=== PATIENT | male | born 1940 | race Caucasian/White ===

== ENCOUNTER → 2018-03-07 13:13 | Outpatient (CLI) | payer MEDICARE, SELFPAY ==
[2018-03-07 15:07] LABS: Alanine Aminotransferase 51 IU/L (21-72); Albumin 4.5 g/dL (3.5-5.0); Alkaline Phosphatase 102 U/L (38-126); Aspartate Aminotransferase 33 IU/L (17-59); BUN Creatinine Ratio 21.4 (6-22); Bilirubin Total 1.2 mg/dL (0.2-1.3); Blood Urea Nitrogen 15 mg/dL (9-20); Calcium 9.7 mg/dL (8.4-10.2); Carbon Dioxide 27 mmol/L (22-32); Chloride 102 mmol/L (98-107); Cholesterol 136 mg/dL (140-199); Estimated Glomerular Filt Rate > 60.0 mL/min (>60); Globulin 2.3 g/dL (1.7-4.1); Glucose 115 mg/dL (80-110); HDL Cholesterol 64 mg/dL (40-60); HEMOLYSIS < 15 (0-50); LDL Cholesterol Calculated 48 mg/dL (<100); Potassium 3.9 mmol/L (3.4-5.1); Sodium 140 mmol/L (137-145); Total Protein 6.8 g/dL (6.3-8.2); Triglycerides 120 mg/dL (35-150)
== END ==
PROVIDERS: PCP Physician Assistant; Visit Provider Physician Assistant
DX: E78.5 Hyperlipidemia, unspecified (principal)
CPT/HCPCS: 36415; 80053; 80061

== ENCOUNTER → 2019-03-03 12:02 | Outpatient (CLI) | payer MEDICARE, SELFPAY ==
--- NOTE | 2019-03-03 | DI.RAD.S_ITS ---
PROCEDURE: XR THORACIC SPINE 3V INDICATIONS: LOW BACK PAIN TECHNIQUE: 3 views of the thoracic spine were acquired. COMPARISON: None. FINDINGS: Bones: No fractures or dislocations. No suspicious bony lesions. There is mild degenerative disc disease at T4-T5, T6-T7, T7-T8, T8-T9, T9-T10, T10-T11 and T11-T 12. Twelve pairs of ribs are noted, and appear intact where visualized. Soft tissues: No paravertebral stripe thickening. IMPRESSION: Mild degenerative disc disease. No fractures. Dictated by: Emiliana Schrader M.D. on 03/03/2019 at 17:16 Approved by: Emiliana Schrader M.D. on 03/03/2019 at 17:19
--- NOTE | 2019-03-03 | DI.RAD.S_ITS ---
PROCEDURE: XR LUMBAR SPINE 2-3V INDICATIONS: LOW BACK PAIN TECHNIQUE: 5 views of the lumbar spine were acquired. COMPARISON: None. FINDINGS: Bones: 5 pdy-tom-jukxcbx vertebrae are present. There is normal bony alignment. No vertebral body compression fractures. No suspicious bony lesions. There is degenerative disc disease, moderate at L4-L5 and L5-S1, mild at L2-L3 and L3-L4. There is mild facet arthropathy at L2-L3, L3 L4, L4-L5 and L5-S1. 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 Soft tissues: Overlying bowel gas pattern is normal. No suspicious soft tissue calcifications. IMPRESSION: Degenerative disc and facet disease lumbar spine. If there are radiculopathy symptoms, MRI is suggested for further evaluation. Dictated by: Emiliana Schrader M.D. on 03/03/2019 at 17:19 Approved by: Emiliana Schrader M.D. on 03/03/2019 at 17:21
== END ==
PROVIDERS: PCP Physician Assistant; Visit Provider Physician Assistant
DX: M54.5 Low back pain (principal); M51.34 Other intervertebral disc degeneration, thoracic region; M51.36 Other intervertebral disc degeneration, lumbar region; M51.37 Other intervertebral disc degeneration, lumbosacral region; M47.816 Spondylosis without myelopathy or radiculopathy, lumbar region; M47.817 Spondylosis without myelopathy or radiculopathy, lumbosacral region
CPT/HCPCS: 72072; 72100

== ENCOUNTER → 2019-03-18 15:50 | Outpatient (CLI) | payer MEDICARE, SELFPAY ==
--- NOTE | 2019-03-18 | DI.MRI.S_ITS ---
PROCEDURE: MR LUMBAR SPINE WO CON INDICATIONS: Right sided low back pain TECHNIQUE: Noncontrast sagittal T1 spin echo and T2 fast echo, sagittal STIR, axial T1 and T2 fast spin echo through the lumbar spine. In cases with scoliosis, additional coronal T2 fast spin echo may be performed. COMPARISON: None. FINDINGS: Image quality: Excellent. Alignment and Curvature: Mild levoconvex scoliotic curvature is noted. No focal AP alignment abnormality is seen. Bone Marrow: Marrow is of normal overall signal. Scattered foci are seen, which are hyperintense on T1-weighted and T2-weighted imaging, which are most consistent with benign vertebral body hemangiomas. No acute vertebral body compression fractures. Spinal Cord: Conus medullaris terminates at the L1 level. Visualized cord demonstrates normal signal and size. Paraspinous Soft Tissues: No paravertebral masses. T12-L1: Normal appearance. L1-L2: Mild loss of disc height is seen. Loss of disc signal is seen. Mild to moderate disc bulge is seen. There is a right foraminal disc extrusion seen, which is best demonstrated on series 3 image 6. There is moderate left-sided and moderate to severe right-sided neural foraminal narrowing seen. There is a degree of compression seen upon the exiting right L1 nerve root. Oxmv-mi-joouqzol central canal narrowing is seen. L2-L3: The disc height is well-preserved. Loss of disc signal is seen at this level. Mild to moderate disc bulge is seen. Sknq-eu-ninbouza facet hypertrophy is seen. There is at least moderate left-sided and moderate right-sided neural foraminal narrowing seen. There is a mild degree of compression seen upon the exiting left L2 nerve root. Grhu-kj-qnjzosgo central canal narrowing is seen. L3-L4: Moderate to severe loss of disc height and disc signal are seen. Irregularity is seen. Reactive marrow endplate changes are seen, which are hyperintense on T1-weighted and T2-weighted imaging and most consistent with fatty metaplasia (Modic type II changes). Moderate disc bulge is seen, which is eccentric to the right. There is a right foraminal disc protrusion seen. There is moderate to severe right-sided neural foraminal narrowing seen, with a degree of compression seen upon the exiting right L3 nerve root. Mild left-sided neural foraminal narrowing is seen. Mild central canal narrowing is seen. L4-L5: Moderate loss of disc height is seen. Loss of disc signal is seen. Moderate disc bulge is seen, which is eccentric to the left. Dvgq-vz-xfjrqgmm facet hypertrophy is seen. There is moderate to severe bilateral neural foraminal narrowing seen. There is a degree of compression seen upon the exiting nerve roots. Minimal central canal narrowing is seen. L5-S1: Moderate to severe loss of disc height and disc signal are seen. Reactive marrow endplate changes are seen, which are hyperintense on T1-weighted and T2-weighted imaging and most consistent with fatty metaplasia (Modic type II changes). Moderate generalized disc bulge is seen. Mild facet joint hypertrophy is seen. There is moderate to severe right-sided neural foraminal narrowing seen, with a mild degree of exiting right L5 nerve root. There is mild left-sided neural foraminal narrowing. No central canal narrowing is seen. IMPRESSION: Multiple levels of lumbar spine degenerative change are seen, which are most prominent at the L4-L5 level. Note is made of a disc extrusion involving the right neural foramen at the L1-L2 level, with associated right L1 nerve root compression. Dictated by: Carter Davila M.D. on 03/18/2019 at 17:19 Approved by: Carter Davila M.D. on 03/18/2019 at 17:24
== END ==
PROVIDERS: PCP Physician Assistant; Visit Provider Physician Assistant
DX: M54.5 Low back pain (principal); M51.16 Intervertebral disc disorders with radiculopathy, lumbar region; M47.26 Other spondylosis with radiculopathy, lumbar region; M47.27 Other spondylosis with radiculopathy, lumbosacral region
CPT/HCPCS: 72148

== ENCOUNTER → 2019-12-29 12:38 | Outpatient (CLI) | payer MEDICARE, SELFPAY ==
--- NOTE | 2019-12-29 12:43 | DI.RAD.S_ITS ---
PROCEDURE: XR CERVICAL SPINE 4V OR 5V INDICATIONS: NECK PAIN TECHNIQUE: 5 views of the cervical spine were acquired. COMPARISON: [facility], , CERVICAL SPINE 2 OR 3 VIEWS, 12/03/2016, 17:14. FINDINGS: Bones: No fractures or dislocations to the T1 level. No suspicious bony lesions. Loss of lordosis which could be related to muscle spasm, rigidity or simply positional. Multilevel disc degeneration, severe at the C3-C4, C4-C5, C5-C6 and C6-C7 levels. Oblique views demonstrate mild multilevel mid and lower cervical spine bilateral neural foraminal narrowing. Soft tissues: Prevertebral soft tissues are normal in thickness. IMPRESSION: Loss of lordosis and multilevel spondylosis. Dictated by: Tulio JOSÉ Interpreted: Rosenda Juarez MD on 12/29/2019 at 16:48 Approved by: Rosenda Juarez M.D. on 12/29/2019 at 16:58
== END ==
PROVIDERS: PCP Physician Assistant; Referring Provider Physician Assistant; Visit Provider Physician Assistant
DX: M54.2 Cervicalgia (principal); M47.22 Other spondylosis with radiculopathy, cervical region
CPT/HCPCS: 72050

== ENCOUNTER → 2020-01-09 10:03 | Outpatient (CLI) | payer MEDICARE, SELFPAY ==
--- NOTE | 2020-01-09 | DI.MRI.S_ITS ---
PROCEDURE: MR CERVICAL SPINE WO CON INDICATIONS: Other cervical disc degeneration TECHNIQUE: Noncontrast sagittal T1 spin echo and T2 fast spin echo, sagittal STIR, foraminal oblique sagittal T2 fast spin echo, and axial gradient echo or T2 fast spin echo through the cervical spine. COMPARISON: None. FINDINGS: Image quality: Excellent. Alignment and Curvature: Normal configuration of the craniocervical junction. Normal cervical spine vertebral body height and alignment. Bone Marrow: Marrow demonstrates normal overall signal. Spinal Cord: Visualized spinal cord has normal size and signal. No cerebellar tonsillar herniation. Paraspinous Soft Tissues: No paravertebral masses. Prevertebral soft tissues are normal in thickness. C2-C3: Facet and uncovertebral hypertrophy contribute to mild right and moderate left neural foraminal stenosis. No spinal canal stenosis. C3-C4: Facet and uncovertebral hypertrophy contribute to moderate bilateral neural foraminal narrowing. Posterior disc-osteophyte complex flattens the ventral thecal sac without mass effect upon the cord. C4-C5: Posterior disc-osteophyte complex flattens and indents the ventral thecal sac, mildly flattening the left paracentral cord also. Facet and uncovertebral hypertrophy contribute to moderate bilateral neural foraminal narrowing. C5-C6: Posterior disc-osteophyte complex flattens and indents the ventral thecal sac without mass effect upon the cord. Facet and uncovertebral hypertrophy contribute to moderate bilateral neural foraminal stenosis. C6-C7: Posterior disc-osteophyte complex flattens the ventral thecal sac. No mass effect upon the cord. Facet and uncovertebral hypertrophy contribute to mild bilateral neural foraminal narrowing. C7-T1: No spinal canal or neural foraminal stenosis. IMPRESSION: Multifactorial degenerative changes with mild spinal canal stenosis at C4-C5 and multilevel moderate neural foraminal stenosis. Dictated by: Gaston King M.D. on 01/11/2020 at 8:30 Approved by: Gaston King M.D. on 01/11/2020 at 8:36
== END ==
PROVIDERS: PCP Physician Assistant; Referring Provider Physician Assistant; Visit Provider Physician Assistant
DX: M50.122 Cervical disc disorder at C5-C6 level with radiculopathy (principal); M50.30 Other cervical disc degeneration, unspecified cervical region
CPT/HCPCS: 72141

== ENCOUNTER 2020-06-16 14:30 | Outpatient (RCR) | payer OTHER, SELFPAY ==
--- NOTE | 2020-05-17 11:07 | PT.OIE ---
Current Diagnoses Spinal stenosis, cervical region (05/17/20) Past Medical History (Last Updated 08/29/17 @ 12:30 by Adalberto Robin MD) TIA (transient ischemic attack) Visit Care Team Role Provider Type Rehana Quiros PA-C Family Provider Non-Staff Primary Care Provider Specialty: Internal Medicine Address: [address] [place] [address], [id number] Email: [email or web address] Ambrose MD Attending Provider Non-Staff Referring Provider Specialty: Neurosurgery Address: [address] [place] [address], [phone] Email: Physical Therapy Initial Evaluation PT-OP-A Visit Information Start: 05/11/20 08:04 Freq: Status: Active Protocol: Document 05/17/20 09:44 MB (Rec: 05/17/20 10:08 MB [id number]) Out-Patient Physical Therapy Visit Information Visit Information Visit Type Initial Evaluation Visit Note [employer] Medicare Visit Start Time 09:44 Visit Stop Time 10:29 Total Visit Minutes 45 Visit Number 1 Evaluation Information Evaluation Date 05/17/20 Precautions Precautions History of TIA x2 and pt on blood thinners. Order states try traction for C3 radiculopathy, will hold off to see if other interventions work first PT-OP-B Current Condition Start: 05/11/20 08:04 Freq: Status: Active Protocol: Document 05/17/20 09:44 MB (Rec: 05/17/20 10:08 MB [id number]) Current Condition History of Current Condition Onset Date 6-8 months ago Current Complaints Neck pain and tingling with reading, doing suduko and gardening History of Current Condition Pt denies an injury. He states that 6-8 months ago, he noted discomfort in his neck and tingling in his left neck area . He has most trouble with standing or sitting and looking down. Pt denies tingling and weakness in his arms. He is right handed. Pt likes to garden and read. He feels better if he keeps his head back. Pt reports if he is in the right position with sleeping, he is okay. He sleeps on his left or back with a couple of pillows under his head if on his back. Pt reports pain around upper neck rated 4/10 when it is bad . He gets into [place] and then gets pain. He states that the pain occ goes up into his jaw . PMH: TIA x2 2018 and 2019, bruises easily, pt takes a blood thinner and cholesterol medications, pt denies further cardiac history. Prior Treatments and Tests PT in the past for lower back issues and s/p laminectomies Cervical MRI 01/09/20: multifactorial degenerative changes and mild canal stenosis at C4-5 and multilevel moderate neural foraminal stenosis Treatment Goals Patient/Caregiver Goals To eliminate the pain and discomfort with activities PT-OP-C Subjective Start: 05/11/20 08:04 Freq: Status: Active Protocol: Document 05/17/20 09:44 MB (Rec: 05/17/20 10:08 MB [id number]) Patient Questionnaires Neck Disability Index NDI Score 13/50 Other Questionnaire Name and Score Pt has no arm symptoms and so will not use QuickDASH score PT-OP-J Posture/Palpation/Skin Start: 05/11/20 08:04 Freq: Status: Active Protocol: Document 05/17/20 09:44 MB (Rec: 05/17/20 10:49 MB [id number]) Posture Evaluation Comments Posture Comments Standing assessment and pt is wearing his shoes: decreased cervical lordosis, Dowager's hump, some lateral curvature at Dowager's hump area, decreased thoracic kyphosis and lumbar lordosis, anterior tilt pelvis, right shoulder and right iliac crest are mildly higher than the left, hypertrophied muscles left thoracolumbar spine, increased Kimberly angle, greater on the right. PT-OP-K Range of Motion Start: 05/11/20 08:04 Freq: Status: Active Protocol: Document 05/17/20 09:44 MB (Rec: 05/17/20 10:49 MB [id number]) Cervical Spine Range of Motion Cervical Spine Active Testing Position Standing Flexion 45 Extension 35 Rotation Left 45 Rotation Right 50 Lateral Flexion Left 11 Lateral Flexion Right 15 Shoulder Goniometric Range of Motion Shoulder Bilateral Shoulder ROM WFL Yes Testing Position Standing Comments Flexion and abduction normal in standing PT-OP-M Strength Start: 05/11/20 08:04 Freq: Status: Active Protocol: Document 05/17/20 09:44 MB (Rec: 05/17/20 10:49 MB [id number]) Shoulder Strength Shoulder Manual Muscle Testing Left Flexion 5 Normal Abduction (C5) 5 Normal External Rotation 4 Good Internal Rotation 5 Normal Right Flexion 5 Normal Abduction (C5) 5 Normal External Rotation 4 Good Internal Rotation 5 Normal Elbow/Forearm Strength Elbow and Forearm Manual Muscle Testing Left Flexion (C6) 5 Normal Pronation 5 Normal Supination 5 Normal Right Flexion (C6) 5 Normal Pronation 5 Normal Supination 5 Normal PT-OP-Q Treatments Start: 05/11/20 08:04 Freq: Status: Active Protocol: Document 05/17/20 09:44 MB (Rec: 05/17/20 11:07 MB [id number]) Self-Care/Home Management Treatment Education Other Education Got out spinal model and print off of cervical MRI report to review changes per report using the model for pt education as he states that he did not understand what was the problem when talking with provider over Telemedicine. Ed pt in proper sleeping position using towel roll and pillows on his side or back for neck support. Ed in log roll technique to protect neck and use of pillow between his arms and legs when in side lying PT-OP-T Assessment and Plan Start: 05/11/20 08:04 Freq: Status: Active Protocol: Document 05/17/20 09:44 MB (Rec: 05/17/20 11:05 MB [id number]) Physical Therapy Assessment Rehab Potential Rehabilitation Potential Good Evaluation Complexity Number of Personal Factors/Comorbidities 0 Number of Body Systems Impaired 1-2 Clinical Presentation at Evaluation Evolving Impairments Impairments Pain,Posture,ROM,Soft Tissue Mobility,Strength Goals 4 Making Line Worker Goal (LTG) Pt will be able to perform [employer] game for 10 minutes without pain by 07/17/20. LTG Duration 8 weeks 3 Making Line Worker Goal (LTG) Pt will perform progressive HEP with I including postural, breathing, strengthening, relaxation, and balance exercises to improve qualtiy of life and performance of IADLs by 07/17/20. LTG Duration 8 weeks 2 Chcf Goal (LTG) Pt will present with improved cervical AROM to at least 45 deg extension, 50 deg flexion and B cervical rotation 55 deg to improve ability to perform tasks of reading and gardening by 07/17/20. LTG Duration 8 weeks 1 Making Line Worker Goal (LTG) Pt will report an overall 75% improvement in neck pain and symptoms to improve overall quality of life by 07/17/20. LTG Duration 8 weeks Assessment Summary Assessment Pt is a pleasant 79 y/o male presenting with neck pain, postural and spinal changes, decreased cervical ROM and mild UE weakness in setting of degenerative changes in cervical spine. He reports a history of lumbar pain and laminectomies as well. Pt reports that prolonged postures of doing suduko, reading and gardening increase his neck pain. His goal for PT is to decrease pain. He will benefit from PT for manual intervention, postural, flexibility and strengthening and ergonomic and body mechanics training. The PT order also states cervical traction and will initiate this as needed. Barriers include spinal changes and tendency to have prolonged postures and not take breaks. Physical Therapy Plan Frequency and Duration Frequency of Treatment 2x/Week Duration of Treatment 8 weeks Plan of Care Start Date 05/17/20 Plan of Care End Date 07/18/20 Therapeutic Interventions Therapeutic Interventions Balance Training,Canalithic Repositioning,Home Exercise Program,Joint Mobilizations, Manual Therapy,Neuromuscular Re-education,Patient/Caregiver Education,Self-Care/Home Management,Sensory Integration ,Soft Tissue Mobilization, Taping,Therapeutic Activities, Therapeutic Exercises Modalities Cold Pack/Ice Massage,Electric Stimulation,Hot Packs, Traction- Mechanical, Ultrasound Next Visit Focus/Plan Next Note Type Treatment Note Next Visit Plan Initiate thoracic flexibility and racquet ball massage ther- ex
--- NOTE | 2020-05-17 11:08 | PT.OPPOC ---
Physical, Occupational & Speech Therapy At [facility] Current Diagnoses Spinal stenosis, cervical region (05/17/20) Visit Care Team Role Provider Type Rehana Quiros PA-C Family Provider Non-Staff Primary Care Provider Specialty: Internal Medicine Address: [address] [place] [address], [id number] Email: [email or web address] Jenaro Ambrose MD Attending Provider Non-Staff Referring Provider Specialty: Neurosurgery Address: [address] [place] [address], [phone] Email: Plan Of Care PT-OP-T Assessment and Plan Start: 05/11/20 08:04 Freq: Status: Active Protocol: Document 05/17/20 09:44 MB (Rec: 05/17/20 11:05 MB [id number]) Physical Therapy Assessment Rehab Potential Rehabilitation Potential Good Evaluation Complexity Number of Personal Factors/Comorbidities 0 Number of Body Systems Impaired 1-2 Clinical Presentation at Evaluation Evolving Impairments Impairments Pain,Posture,ROM,Soft Tissue Mobility,Strength Goals 4 Chcf Goal (LTG) Pt will be able to perform [place] game for 10 minutes without pain by 07/17/20. LTG Duration 8 weeks 3 Duct Maker Goal (LTG) Pt will perform progressive HEP with I including postural, breathing, strengthening, relaxation, and balance exercises to improve qualtiy of life and performance of IADLs by 07/17/20. LTG Duration 8 weeks 2 Duct Maker Goal (LTG) Pt will present with improved cervical AROM to at least 45 deg extension, 50 deg flexion and B cervical rotation 55 deg to improve ability to perform tasks of reading and gardening by 07/17/20. LTG Duration 8 weeks 1 Duct Maker Goal (LTG) Pt will report an overall 75% improvement in neck pain and symptoms to improve overall quality of life by 07/17/20. LTG Duration 8 weeks Assessment Summary Assessment Pt is a pleasant 79 y/o male presenting with neck pain, postural and spinal changes, decreased cervical ROM and mild UE weakness in setting of degenerative changes in cervical spine. He reports a history of lumbar pain and laminectomies as well. Pt reports that prolonged postures of doing suduko, reading and gardening increase his neck pain. His goal for PT is to decrease pain. He will benefit from PT for manual intervention, postural, flexibility and strengthening and ergonomic and body mechanics training. The PT order also states cervical traction and will initiate this as needed. Barriers include spinal changes and tendency to have prolonged postures and not take breaks. Physical Therapy Plan Frequency and Duration Frequency of Treatment 2x/Week Duration of Treatment 8 weeks Plan of Care Start Date 05/17/20 Plan of Care End Date 07/18/20 Therapeutic Interventions Therapeutic Interventions Balance Training,Canalithic Repositioning,Home Exercise Program,Joint Mobilizations, Manual Therapy,Neuromuscular Re-education,Patient/Caregiver Education,Self-Care/Home Management,Sensory Integration ,Soft Tissue Mobilization, Taping,Therapeutic Activities, Therapeutic Exercises Modalities Cold Pack/Ice Massage,Electric Stimulation,Hot Packs, Traction- Mechanical, Ultrasound Next Visit Focus/Plan Next Note Type Treatment Note Next Visit Plan Initiate thoracic flexibility and racquet ball massage ther- ex Plan of Care Dates Plan of Care Start Date 05/17/20 Plan of Care End Date 07/18/20 Electronically Signed by: Almiat Gruber, PT 05/17/20 1101 Please Sign and Return: I have reviewed this Plan of Care and certify that the skilled therapy services above are required to meet the patient?s needs. Physician Signature Date Printed Name and Credentials Clinical Instructor Signature Printed Name and Credentials
--- NOTE | 2020-05-20 08:57 | PT.OTN ---
Current Diagnoses Spinal stenosis, cervical region (05/20/20) Physical Therapy Treatment Note PT-OP-A Visit Information Start: 05/11/20 08:04 Freq: Status: Active Protocol: Document 05/20/20 08:17 MB (Rec: 05/20/20 08:56 MB [id number]) Out-Patient Physical Therapy Visit Information Visit Information Visit Type Treatment Note Visit Note A[employer] Medicare Visit Start Time 08:17 Visit Stop Time 08:56 Total Visit Minutes 39 Visit Number 2 Precautions Precautions History of TIA x2 and pt on blood thinners. Order states try traction for C3 radiculopathy, will hold off to see if other interventions work first PT-OP-B Current Condition Start: 05/11/20 08:04 Freq: Status: Active Protocol: Document 05/17/20 09:44 MB (Rec: 05/17/20 10:08 MB [id number]) Current Condition History of Current Condition Onset Date 6-8 months ago Current Complaints Neck pain and tingling with reading, doing suduko and gardening History of Current Condition Pt denies an injury. He states that 6-8 months ago, he noted discomfort in his neck and tingling in his left neck area . He has most trouble with standing or sitting and looking down. Pt denies tingling and weakness in his arms. He is right handed. Pt likes to garden and read. He feels better if he keeps his head back. Pt reports if he is in the right position with sleeping, he is okay. He sleeps on his left or back with a couple of pillows under his head if on his back. Pt reports pain around upper neck rated 4/10 when it is bad . He gets into [place] and then gets pain. He states that the pain occ goes up into his jaw . PMH: TIA x2 2018 and 2019, bruises easily, pt takes a blood thinner and cholesterol medications, pt denies further cardiac history. Prior Treatments and Tests PT in the past for lower back issues and s/p laminectomies Cervical MRI 01/09/20: multifactorial degenerative changes and mild canal stenosis at C4-5 and multilevel moderate neural foraminal stenosis Treatment Goals Patient/Caregiver Goals To eliminate the pain and discomfort with activities PT-OP-C Subjective Start: 05/11/20 08:04 Freq: Status: Active Protocol: Document 05/20/20 08:17 MB (Rec: 05/20/20 08:57 MB [id number]) OP-PT Subjective Patient Comments Patient Comments Pt has no questions from the eval and he is drinking more non-caffeinated fluid. PT-OP-J Posture/Palpation/Skin Start: 05/11/20 08:04 Freq: Status: Active Protocol: Document 05/17/20 09:44 MB (Rec: 05/17/20 10:49 MB [id number]) Posture Evaluation Comments Posture Comments Standing assessment and pt is wearing his shoes: decreased cervical lordosis, Dowager's hump, some lateral curvature at Dowager's hump area, decreased thoracic kyphosis and lumbar lordosis, anterior tilt pelvis, right shoulder and right iliac crest are mildly higher than the left, hypertrophied muscles left thoracolumbar spine, increased Kimberly angle, greater on the right. PT-OP-K Range of Motion Start: 05/11/20 08:04 Freq: Status: Active Protocol: Document 05/17/20 09:44 MB (Rec: 05/17/20 10:49 MB [id number]) Cervical Spine Range of Motion Cervical Spine Active Testing Position Standing Flexion 45 Extension 35 Rotation Left 45 Rotation Right 50 Lateral Flexion Left 11 Lateral Flexion Right 15 Shoulder Goniometric Range of Motion Shoulder Bilateral Shoulder ROM WFL Yes Testing Position Standing Comments Flexion and abduction normal in standing PT-OP-M Strength Start: 05/11/20 08:04 Freq: Status: Active Protocol: Document 05/17/20 09:44 MB (Rec: 05/17/20 10:49 MB [id number]) Shoulder Strength Shoulder Manual Muscle Testing Left Flexion 5 Normal Abduction (C5) 5 Normal External Rotation 4 Good Internal Rotation 5 Normal Right Flexion 5 Normal Abduction (C5) 5 Normal External Rotation 4 Good Internal Rotation 5 Normal Elbow/Forearm Strength Elbow and Forearm Manual Muscle Testing Left Flexion (C6) 5 Normal Pronation 5 Normal Supination 5 Normal Right Flexion (C6) 5 Normal Pronation 5 Normal Supination 5 Normal PT-OP-Q Treatments Start: 05/11/20 08:04 Freq: Status: Active Protocol: Document 05/20/20 08:17 MB (Rec: 05/20/20 08:56 MB [id number]) Therapeutic Exercises Sitting Exercises Thoracic rotation Side bilateral Comments B, cues for form and end-range breathing, 4 reps and slowly Standing Exercises Racquet ball self-massage Standing Exercise Name MWM intrascapular muscles and upper traps, STM lumbar paraspinal, QL, glute Comments B and multiple practice, education Self-Care/Home Management Treatment Education Other Education Good sitting position at the desk top, Counterstrain and provided handout PT-OP-T Assessment and Plan Start: 05/11/20 08:04 Freq: Status: Active Protocol: Document 05/20/20 08:17 MB (Rec: 05/20/20 08:56 MB [id number]) Physical Therapy Assessment Rehab Potential Rehabilitation Potential Good Evaluation Complexity Number of Personal Factors/Comorbidities 0 Number of Body Systems Impaired 1-2 Clinical Presentation at Evaluation Evolving Impairments Impairments Pain,Posture,ROM,Soft Tissue Mobility,Strength Goals 4 Back Closer Goal (LTG) Pt will be able to perform Athletes[employer] Performance game for 10 minutes without pain by 07/17/20. LTG Duration 8 weeks 3 Back Closer Goal (LTG) Pt will perform progressive HEP with I including postural, breathing, strengthening, relaxation, and balance exercises to improve qualtiy of life and performance of IADLs by 07/17/20. LTG Duration 8 weeks 2 Fci Goal (LTG) Pt will present with improved cervical AROM to at least 45 deg extension, 50 deg flexion and B cervical rotation 55 deg to improve ability to perform tasks of reading and gardening by 07/17/20. LTG Duration 8 weeks 1 Fci Goal (LTG) Pt will report an overall 75% improvement in neck pain and symptoms to improve overall quality of life by 07/17/20. LTG Duration 8 weeks Assessment Summary Assessment Initiated flexibility with racquet ball today and pt does well with practice. He tends to hold his posture stiff in his thorax, shoulders and neck and so will con't to educate him about this and he may benefit from breathing exercises to assist with movement. Physical Therapy Plan Frequency and Duration Frequency of Treatment 2x/Week Duration of Treatment 8 weeks Plan of Care Start Date 05/17/20 Plan of Care End Date 07/18/20 Therapeutic Interventions Therapeutic Interventions Balance Training,Canalithic Repositioning,Home Exercise Program,Joint Mobilizations, Manual Therapy,Neuromuscular Re-education,Patient/Caregiver Education,Self-Care/Home Management,Sensory Integration ,Soft Tissue Mobilization, Taping,Therapeutic Activities, Therapeutic Exercises Modalities Cold Pack/Ice Massage,Electric Stimulation,Hot Packs, Traction- Mechanical, Ultrasound Next Visit Focus/Plan Next Note Type Treatment Note Next Visit Plan Progress exercises including breathing exercises, and consider manual work
--- NOTE | 2020-05-23 09:06 | PT.OTN ---
Current Diagnoses Spinal stenosis, cervical region (05/23/20) Physical Therapy Treatment Note PT-OP-A Visit Information Start: 05/11/20 08:04 Freq: Status: Active Protocol: Document 05/23/20 08:17 MB (Rec: 05/23/20 08:55 MB [id number]) Out-Patient Physical Therapy Visit Information Visit Information Visit Type Treatment Note Visit Note AARP Medicare Visit Start Time 08:17 Visit Stop Time 08:57 Total Visit Minutes 40 Visit Number 3 Precautions Precautions History of TIA x2 and pt on blood thinners. Order states try traction for C3 radiculopathy, will hold off to see if other interventions work first PT-OP-B Current Condition Start: 05/11/20 08:04 Freq: Status: Active Protocol: Document 05/17/20 09:44 MB (Rec: 05/17/20 10:08 MB [id number]) Current Condition History of Current Condition Onset Date 6-8 months ago Current Complaints Neck pain and tingling with reading, doing suduko and gardening History of Current Condition Pt denies an injury. He states that 6-8 months ago, he noted discomfort in his neck and tingling in his left neck area . He has most trouble with standing or sitting and looking down. Pt denies tingling and weakness in his arms. He is right handed. Pt likes to garden and read. He feels better if he keeps his head back. Pt reports if he is in the right position with sleeping, he is okay. He sleeps on his left or back with a couple of pillows under his head if on his back. Pt reports pain around upper neck rated 4/10 when it is bad . He gets into [place] and then gets pain. He states that the pain occ goes up into his jaw . PMH: TIA x2 2018 and 2019, bruises easily, pt takes a blood thinner and cholesterol medications, pt denies further cardiac history. Prior Treatments and Tests PT in the past for lower back issues and s/p laminectomies Cervical MRI 01/09/20: multifactorial degenerative changes and mild canal stenosis at C4-5 and multilevel moderate neural foraminal stenosis Treatment Goals Patient/Caregiver Goals To eliminate the pain and discomfort with activities PT-OP-C Subjective Start: 05/11/20 08:04 Freq: Status: Active Protocol: Document 05/23/20 08:17 MB (Rec: 05/23/20 08:55 MB [id number]) OP-PT Subjective Patient Comments Patient Comments Pt thinks that the racquet ball massage is helpful. The mornings are good and he gets sore in the afternoons. PT-OP-J Posture/Palpation/Skin Start: 05/11/20 08:04 Freq: Status: Active Protocol: Document 05/17/20 09:44 MB (Rec: 05/17/20 10:49 MB [id number]) Posture Evaluation Comments Posture Comments Standing assessment and pt is wearing his shoes: decreased cervical lordosis, Dowager's hump, some lateral curvature at Dowager's hump area, decreased thoracic kyphosis and lumbar lordosis, anterior tilt pelvis, right shoulder and right iliac crest are mildly higher than the left, hypertrophied muscles left thoracolumbar spine, increased Kimberly angle, greater on the right. PT-OP-K Range of Motion Start: 05/11/20 08:04 Freq: Status: Active Protocol: Document 05/17/20 09:44 MB (Rec: 05/17/20 10:49 MB [id number]) Cervical Spine Range of Motion Cervical Spine Active Testing Position Standing Flexion 45 Extension 35 Rotation Left 45 Rotation Right 50 Lateral Flexion Left 11 Lateral Flexion Right 15 Shoulder Goniometric Range of Motion Shoulder Bilateral Shoulder ROM WFL Yes Testing Position Standing Comments Flexion and abduction normal in standing PT-OP-M Strength Start: 05/11/20 08:04 Freq: Status: Active Protocol: Document 05/17/20 09:44 MB (Rec: 05/17/20 10:49 MB [id number]) Shoulder Strength Shoulder Manual Muscle Testing Left Flexion 5 Normal Abduction (C5) 5 Normal External Rotation 4 Good Internal Rotation 5 Normal Right Flexion 5 Normal Abduction (C5) 5 Normal External Rotation 4 Good Internal Rotation 5 Normal Elbow/Forearm Strength Elbow and Forearm Manual Muscle Testing Left Flexion (C6) 5 Normal Pronation 5 Normal Supination 5 Normal Right Flexion (C6) 5 Normal Pronation 5 Normal Supination 5 Normal PT-OP-Q Treatments Start: 05/11/20 08:04 Freq: Status: Active Protocol: Document 05/23/20 08:17 MB (Rec: 05/23/20 08:55 MB [id number]) Manual Therapy Treatment Other Other Manual Treatments Pt agrees to Counterstrain to assess and treat fascial tension. Pt presents with tension in the following fascial systems: right trigeminal and facial nerves, cranial bone scars, spinal meduallary LV and PT treats stacks in spinal medullary system and then standard lymphatic scan that is tight after treating medullary row. PT-OP-T Assessment and Plan Start: 05/11/20 08:04 Freq: Status: Active Protocol: Document 05/23/20 08:17 MB (Rec: 05/23/20 08:55 MB [id number]) Physical Therapy Assessment Rehab Potential Rehabilitation Potential Good Evaluation Complexity Number of Personal Factors/Comorbidities 0 Number of Body Systems Impaired 1-2 Clinical Presentation at Evaluation Evolving Impairments Impairments Pain,Posture,ROM,Soft Tissue Mobility,Strength Goals 4 Long-Term Goal (LTG) Pt will be able to perform Turbocoating game for 10 minutes without pain by 07/17/20. LTG Duration 8 weeks 3 Long-Term Goal (LTG) Pt will perform progressive HEP with I including postural, breathing, strengthening, relaxation, and balance exercises to improve qualtiy of life and performance of IADLs by 07/17/20. LTG Duration 8 weeks 2 Antenna Engineer Goal (LTG) Pt will present with improved cervical AROM to at least 45 deg extension, 50 deg flexion and B cervical rotation 55 deg to improve ability to perform tasks of reading and gardening by 07/17/20. LTG Duration 8 weeks 1 Antenna Engineer Goal (LTG) Pt will report an overall 75% improvement in neck pain and symptoms to improve overall quality of life by 07/17/20. LTG Duration 8 weeks Assessment Summary Assessment Initiated Counterstrain today and pt responds well initially . He presents with increased tension in LV system and that improves after treatment. Con' t to monitor. Physical Therapy Plan Frequency and Duration Frequency of Treatment 2x/Week Duration of Treatment 8 weeks Plan of Care Start Date 05/17/20 Plan of Care End Date 07/18/20 Therapeutic Interventions Therapeutic Interventions Balance Training,Canalithic Repositioning,Home Exercise Program,Joint Mobilizations, Manual Therapy,Neuromuscular Re-education,Patient/Caregiver Education,Self-Care/Home Management,Sensory Integration ,Soft Tissue Mobilization, Taping,Therapeutic Activities, Therapeutic Exercises Modalities Cold Pack/Ice Massage,Electric Stimulation,Hot Packs, Traction- Mechanical, Ultrasound Next Visit Focus/Plan Next Note Type Treatment Note Next Visit Plan Progress exercises including breathing exercises, and consider manual work
--- NOTE | 2020-05-25 09:05 | PT.OTN ---
Current Diagnoses Spinal stenosis, cervical region (05/25/20) Physical Therapy Treatment Note PT-OP-A Visit Information Start: 05/11/20 08:04 Freq: Status: Active Protocol: Document 05/25/20 08:18 MB (Rec: 05/25/20 08:59 MB [id number]) Out-Patient Physical Therapy Visit Information Visit Information Visit Type Treatment Note Visit Note AARP Medicare Visit Start Time 08:18 Visit Stop Time 09:00 Total Visit Minutes 42 Visit Number 4 Precautions Precautions History of TIA x2 and pt on blood thinners. Order states try traction for C3 radiculopathy, will hold off to see if other interventions work first PT-OP-B Current Condition Start: 05/11/20 08:04 Freq: Status: Active Protocol: Document 05/17/20 09:44 MB (Rec: 05/17/20 10:08 MB [id number]) Current Condition History of Current Condition Onset Date 6-8 months ago Current Complaints Neck pain and tingling with reading, doing suduko and gardening History of Current Condition Pt denies an injury. He states that 6-8 months ago, he noted discomfort in his neck and tingling in his left neck area . He has most trouble with standing or sitting and looking down. Pt denies tingling and weakness in his arms. He is right handed. Pt likes to garden and read. He feels better if he keeps his head back. Pt reports if he is in the right position with sleeping, he is okay. He sleeps on his left or back with a couple of pillows under his head if on his back. Pt reports pain around upper neck rated 4/10 when it is bad . He gets into [place] and then gets pain. He states that the pain occ goes up into his jaw . PMH: TIA x2 2018 and 2019, bruises easily, pt takes a blood thinner and cholesterol medications, pt denies further cardiac history. Prior Treatments and Tests PT in the past for lower back issues and s/p laminectomies Cervical MRI 01/09/20: multifactorial degenerative changes and mild canal stenosis at C4-5 and multilevel moderate neural foraminal stenosis Treatment Goals Patient/Caregiver Goals To eliminate the pain and discomfort with activities PT-OP-C Subjective Start: 05/11/20 08:04 Freq: Status: Active Protocol: Document 05/25/20 08:18 MB (Rec: 05/25/20 08:59 MB [id number]) OP-PT Subjective Patient Comments Patient Comments No problem with it. When PT asks pt how he felt after PT treatment PT-OP-J Posture/Palpation/Skin Start: 05/11/20 08:04 Freq: Status: Active Protocol: Document 05/17/20 09:44 MB (Rec: 05/17/20 10:49 MB [id number]) Posture Evaluation Comments Posture Comments Standing assessment and pt is wearing his shoes: decreased cervical lordosis, Dowager's hump, some lateral curvature at Dowager's hump area, decreased thoracic kyphosis and lumbar lordosis, anterior tilt pelvis, right shoulder and right iliac crest are mildly higher than the left, hypertrophied muscles left thoracolumbar spine, increased Kimberly angle, greater on the right. PT-OP-K Range of Motion Start: 05/11/20 08:04 Freq: Status: Active Protocol: Document 05/17/20 09:44 MB (Rec: 05/17/20 10:49 MB [id number]) Cervical Spine Range of Motion Cervical Spine Active Testing Position Standing Flexion 45 Extension 35 Rotation Left 45 Rotation Right 50 Lateral Flexion Left 11 Lateral Flexion Right 15 Shoulder Goniometric Range of Motion Shoulder Bilateral Shoulder ROM WFL Yes Testing Position Standing Comments Flexion and abduction normal in standing PT-OP-M Strength Start: 05/11/20 08:04 Freq: Status: Active Protocol: Document 05/17/20 09:44 MB (Rec: 05/17/20 10:49 MB [id number]) Shoulder Strength Shoulder Manual Muscle Testing Left Flexion 5 Normal Abduction (C5) 5 Normal External Rotation 4 Good Internal Rotation 5 Normal Right Flexion 5 Normal Abduction (C5) 5 Normal External Rotation 4 Good Internal Rotation 5 Normal Elbow/Forearm Strength Elbow and Forearm Manual Muscle Testing Left Flexion (C6) 5 Normal Pronation 5 Normal Supination 5 Normal Right Flexion (C6) 5 Normal Pronation 5 Normal Supination 5 Normal PT-OP-Q Treatments Start: 05/11/20 08:04 Freq: Status: Active Protocol: Document 05/25/20 08:18 MB (Rec: 05/25/20 08:59 MB [id number]) Therapeutic Exercises Supine Exercises Buteyko Breathing Supine Exercise Name Ed in theory, then reduced exercise 1 and then diaphragm exercise Comments Several reps, see assessment for notes Sitting Exercises Thoracic rotation Side bilateral Comments Cues to keep head with shoulders, perform slowly, breathing end-range Standing Exercises Racquet ball self-massage Standing Exercise Name Intrascapular muscles STM Comments B and pt performs well today Self-Care/Home Management Treatment Education Other Education Pt asks if he should get a cervical collar for when he walks his dog and feels the tingling/pain in his neck. PT ed pt on importance of noticing if his neck and shoulders are loose, benefits of holding a slightly longer leash with both hands, using right hand as support hand, when he walks his dog. Awareness of looking down vs scanning with eyes to help with cervical position. Also reviewed reading positions, benefits of breathing techniques to help with body awareness and taking breaks when performing forward tasks like gardening. PT-OP-T Assessment and Plan Start: 05/11/20 08:04 Freq: Status: Active Protocol: Document 05/25/20 08:18 MB (Rec: 05/25/20 08:59 MB [id number]) Physical Therapy Assessment Rehab Potential Rehabilitation Potential Good Evaluation Complexity Number of Personal Factors/Comorbidities 0 Number of Body Systems Impaired 1-2 Clinical Presentation at Evaluation Evolving Impairments Impairments Pain,Posture,ROM,Soft Tissue Mobility,Strength Goals 4 Cabin Supervisor Goal (LTG) Pt will be able to perform [employer] game for 10 minutes without pain by 07/17/20. LTG Duration 8 weeks 3 Cabin Supervisor Goal (LTG) Pt will perform progressive HEP with I including postural, breathing, strengthening, relaxation, and balance exercises to improve qualtiy of life and performance of IADLs by 07/17/20. LTG Duration 8 weeks 2 Cabin Supervisor Goal (LTG) Pt will present with improved cervical AROM to at least 45 deg extension, 50 deg flexion and B cervical rotation 55 deg to improve ability to perform tasks of reading and gardening by 07/17/20. LTG Duration 8 weeks 1 Cabin Supervisor Goal (LTG) Pt will report an overall 75% improvement in neck pain and symptoms to improve overall quality of life by 07/17/20. LTG Duration 8 weeks Assessment Summary Assessment Reviewed racquet ball and thoracic exercises today and then started Buteyko breathing . Pt's HR and O2 sats on RA in left index finger before ex: 61 BPM, 96%; 1st rep: 22 sec and HR increases 71 BPM and O2 sats 97%; 2nd rep: 25 sec, HR 65 BPM and O2 sats 95-97%; 3rd rep: 34 sec, 61 BPM, 97- 98%; 4th rep: 41 sec, 64 BPM, 97-98%. Diaphragm breathinst rep: 29 sec 64 BPM, 97% and pt to con't at home. Con't manual work and postural exercises in future treatments . Physical Therapy Plan Frequency and Duration Frequency of Treatment 2x/Week Duration of Treatment 8 weeks Plan of Care Start Date 05/17/20 Plan of Care End Date 07/18/20 Therapeutic Interventions Therapeutic Interventions Balance Training,Canalithic Repositioning,Home Exercise Program,Joint Mobilizations, Manual Therapy,Neuromuscular Re-education,Patient/Caregiver Education,Self-Care/Home Management,Sensory Integration ,Soft Tissue Mobilization, Taping,Therapeutic Activities, Therapeutic Exercises Modalities Cold Pack/Ice Massage,Electric Stimulation,Hot Packs, Traction- Mechanical, Ultrasound Next Visit Focus/Plan Next Note Type Treatment Note Next Visit Plan Progress postural exercises and manual work
--- NOTE | 2020-06-01 10:31 | PT.OTN ---
Current Diagnoses Spinal stenosis, cervical region (06/01/20) Physical Therapy Treatment Note PT-OP-A Visit Information Start: 05/11/20 08:04 Freq: Status: Active Protocol: Document 06/01/20 09:50 MB (Rec: 06/01/20 10:19 MB [id number]) Out-Patient Physical Therapy Visit Information Visit Information Visit Type Treatment Note Visit Note AARP Medicare Visit Start Time 09:50 Visit Stop Time 10:30 Total Visit Minutes 40 Visit Number 5 Precautions Precautions History of TIA x2 and pt on blood thinners. Order states try traction for C3 radiculopathy, will hold off to see if other interventions work first PT-OP-B Current Condition Start: 05/11/20 08:04 Freq: Status: Active Protocol: Document 05/17/20 09:44 MB (Rec: 05/17/20 10:08 MB [id number]) Current Condition History of Current Condition Onset Date 6-8 months ago Current Complaints Neck pain and tingling with reading, doing suduko and gardening History of Current Condition Pt denies an injury. He states that 6-8 months ago, he noted discomfort in his neck and tingling in his left neck area . He has most trouble with standing or sitting and looking down. Pt denies tingling and weakness in his arms. He is right handed. Pt likes to garden and read. He feels better if he keeps his head back. Pt reports if he is in the right position with sleeping, he is okay. He sleeps on his left or back with a couple of pillows under his head if on his back. Pt reports pain around upper neck rated 4/10 when it is bad . He gets into Sud[place]o and then gets pain. He states that the pain occ goes up into his jaw . PMH: TIA x2 2018 and 2019, bruises easily, pt takes a blood thinner and cholesterol medications, pt denies further cardiac history. Prior Treatments and Tests PT in the past for lower back issues and s/p laminectomies Cervical MRI 01/09/20: multifactorial degenerative changes and mild canal stenosis at C4-5 and multilevel moderate neural foraminal stenosis Treatment Goals Patient/Caregiver Goals To eliminate the pain and discomfort with activities PT-OP-C Subjective Start: 05/11/20 08:04 Freq: Status: Active Protocol: Document 06/01/20 09:50 MB (Rec: 06/01/20 10:19 MB [id number]) OP-PT Subjective Patient Comments Patient Comments Pt states that he feels about the same. He still gets the tingling in the left side of his neck when sitting too long . He is reducing the amount of time he does some tasks. PT-OP-J Posture/Palpation/Skin Start: 05/11/20 08:04 Freq: Status: Active Protocol: Document 05/17/20 09:44 MB (Rec: 05/17/20 10:49 MB [id number]) Posture Evaluation Comments Posture Comments Standing assessment and pt is wearing his shoes: decreased cervical lordosis, Dowager's hump, some lateral curvature at Dowager's hump area, decreased thoracic kyphosis and lumbar lordosis, anterior tilt pelvis, right shoulder and right iliac crest are mildly higher than the left, hypertrophied muscles left thoracolumbar spine, increased Kimberly angle, greater on the right. PT-OP-K Range of Motion Start: 05/11/20 08:04 Freq: Status: Active Protocol: Document 05/17/20 09:44 MB (Rec: 05/17/20 10:49 MB [id number]) Cervical Spine Range of Motion Cervical Spine Active Testing Position Standing Flexion 45 Extension 35 Rotation Left 45 Rotation Right 50 Lateral Flexion Left 11 Lateral Flexion Right 15 Shoulder Goniometric Range of Motion Shoulder Bilateral Shoulder ROM WFL Yes Testing Position Standing Comments Flexion and abduction normal in standing PT-OP-M Strength Start: 05/11/20 08:04 Freq: Status: Active Protocol: Document 05/17/20 09:44 MB (Rec: 05/17/20 10:49 MB [id number]) Shoulder Strength Shoulder Manual Muscle Testing Left Flexion 5 Normal Abduction (C5) 5 Normal External Rotation 4 Good Internal Rotation 5 Normal Right Flexion 5 Normal Abduction (C5) 5 Normal External Rotation 4 Good Internal Rotation 5 Normal Elbow/Forearm Strength Elbow and Forearm Manual Muscle Testing Left Flexion (C6) 5 Normal Pronation 5 Normal Supination 5 Normal Right Flexion (C6) 5 Normal Pronation 5 Normal Supination 5 Normal PT-OP-Q Treatments Start: 05/11/20 08:04 Freq: Status: Active Protocol: Document 06/01/20 09:50 MB (Rec: 06/01/20 10:19 MB [id number]) Therapeutic Exercises Supine Exercises Buteyko Breathing Supine Exercise Name Diaphragm breathing with Buteyko breathing Comments 1 rep today, provided handouts again Manual Therapy Treatment Other Other Manual Treatments Pt agrees to Counterstrain to assess and treat fascial tension. Pt presents with tension in the following fascial systems: ALL, LF, spinal medullary vein, spinal vein extension, right zygoma is tight. PT treats stacks in ALL and LF systems. PT then treats spinal vein extension and pt responds well to treatment initially and will con't to monitor. PT-OP-T Assessment and Plan Start: 05/11/20 08:04 Freq: Status: Active Protocol: Document 06/01/20 09:50 MB (Rec: 06/01/20 10:19 MB [id number]) Physical Therapy Assessment Rehab Potential Rehabilitation Potential Good Evaluation Complexity Number of Personal Factors/Comorbidities 0 Number of Body Systems Impaired 1-2 Clinical Presentation at Evaluation Evolving Impairments Impairments Pain,Posture,ROM,Soft Tissue Mobility,Strength Goals 4 Loom Changer Goal (LTG) Pt will be able to perform Local Motion game for 10 minutes without pain by 07/17/20. LTG Duration 8 weeks 3 Loom Changer Goal (LTG) Pt will perform progressive HEP with I including postural, breathing, strengthening, relaxation, and balance exercises to improve qualtiy of life and performance of IADLs by 07/17/20. LTG Duration 8 weeks 2 Shelter Goal (LTG) Pt will present with improved cervical AROM to at least 45 deg extension, 50 deg flexion and B cervical rotation 55 deg to improve ability to perform tasks of reading and gardening by 07/17/20. LTG Duration 8 weeks 1 Shelter Goal (LTG) Pt will report an overall 75% improvement in neck pain and symptoms to improve overall quality of life by 07/17/20. LTG Duration 8 weeks Assessment Summary Assessment Pt con't to state he is about the same. He states that the breathing exercises are relaxing and he is not performing some exercises as long as he used to to help with posture. Counterstrain today and pt responds well initially. Will con't to monitor. Consider thoracic extension exercises in future treatments. Physical Therapy Plan Frequency and Duration Frequency of Treatment 2x/Week Duration of Treatment 8 weeks Plan of Care Start Date 05/17/20 Plan of Care End Date 07/18/20 Therapeutic Interventions Therapeutic Interventions Balance Training,Canalithic Repositioning,Home Exercise Program,Joint Mobilizations, Manual Therapy,Neuromuscular Re-education,Patient/Caregiver Education,Self-Care/Home Management,Sensory Integration ,Soft Tissue Mobilization, Taping,Therapeutic Activities, Therapeutic Exercises Modalities Cold Pack/Ice Massage,Electric Stimulation,Hot Packs, Traction- Mechanical, Ultrasound Next Visit Focus/Plan Next Note Type Treatment Note Next Visit Plan Progress postural exercises and manual work. Consider pect stretch over his therapy ball or pool noodle.
--- NOTE | 2020-06-03 10:33 | PT.OTN ---
Current Diagnoses Spinal stenosis, cervical region (06/03/20) Physical Therapy Treatment Note PT-OP-A Visit Information Start: 05/11/20 08:04 Freq: Status: Active Protocol: Document 06/03/20 09:47 MB (Rec: 06/03/20 10:32 MB [id number]) Out-Patient Physical Therapy Visit Information Visit Information Visit Type Treatment Note Visit Note AARP Medicare Visit Start Time 09:47 Visit Stop Time 10:30 Total Visit Minutes 43 Visit Number 6 Precautions Precautions History of TIA x2 and pt on blood thinners. Order states try traction for C3 radiculopathy, will hold off to see if other interventions work first PT-OP-B Current Condition Start: 05/11/20 08:04 Freq: Status: Active Protocol: Document 05/17/20 09:44 MB (Rec: 05/17/20 10:08 MB [id number]) Current Condition History of Current Condition Onset Date 6-8 months ago Current Complaints Neck pain and tingling with reading, doing suduko and gardening History of Current Condition Pt denies an injury. He states that 6-8 months ago, he noted discomfort in his neck and tingling in his left neck area . He has most trouble with standing or sitting and looking down. Pt denies tingling and weakness in his arms. He is right handed. Pt likes to garden and read. He feels better if he keeps his head back. Pt reports if he is in the right position with sleeping, he is okay. He sleeps on his left or back with a couple of pillows under his head if on his back. Pt reports pain around upper neck rated 4/10 when it is bad . He gets into [place]o and then gets pain. He states that the pain occ goes up into his jaw . PMH: TIA x2 2018 and 2019, bruises easily, pt takes a blood thinner and cholesterol medications, pt denies further cardiac history. Prior Treatments and Tests PT in the past for lower back issues and s/p laminectomies Cervical MRI 01/09/20: multifactorial degenerative changes and mild canal stenosis at C4-5 and multilevel moderate neural foraminal stenosis Treatment Goals Patient/Caregiver Goals To eliminate the pain and discomfort with activities PT-OP-C Subjective Start: 05/11/20 08:04 Freq: Status: Active Protocol: Document 06/03/20 09:47 MB (Rec: 06/03/20 10:32 MB [id number]) OP-PT Subjective Patient Comments Patient Comments Pt states that his symptoms con't to be positionally provoked and then seem more constant in the afternoons. PT-OP-J Posture/Palpation/Skin Start: 05/11/20 08:04 Freq: Status: Active Protocol: Document 05/17/20 09:44 MB (Rec: 05/17/20 10:49 MB [id number]) Posture Evaluation Comments Posture Comments Standing assessment and pt is wearing his shoes: decreased cervical lordosis, Dowager's hump, some lateral curvature at Dowager's hump area, decreased thoracic kyphosis and lumbar lordosis, anterior tilt pelvis, right shoulder and right iliac crest are mildly higher than the left, hypertrophied muscles left thoracolumbar spine, increased Kimberly angle, greater on the right. PT-OP-K Range of Motion Start: 05/11/20 08:04 Freq: Status: Active Protocol: Document 05/17/20 09:44 MB (Rec: 05/17/20 10:49 MB [id number]) Cervical Spine Range of Motion Cervical Spine Active Testing Position Standing Flexion 45 Extension 35 Rotation Left 45 Rotation Right 50 Lateral Flexion Left 11 Lateral Flexion Right 15 Shoulder Goniometric Range of Motion Shoulder Bilateral Shoulder ROM WFL Yes Testing Position Standing Comments Flexion and abduction normal in standing PT-OP-M Strength Start: 05/11/20 08:04 Freq: Status: Active Protocol: Document 05/17/20 09:44 MB (Rec: 05/17/20 10:49 MB [id number]) Shoulder Strength Shoulder Manual Muscle Testing Left Flexion 5 Normal Abduction (C5) 5 Normal External Rotation 4 Good Internal Rotation 5 Normal Right Flexion 5 Normal Abduction (C5) 5 Normal External Rotation 4 Good Internal Rotation 5 Normal Elbow/Forearm Strength Elbow and Forearm Manual Muscle Testing Left Flexion (C6) 5 Normal Pronation 5 Normal Supination 5 Normal Right Flexion (C6) 5 Normal Pronation 5 Normal Supination 5 Normal PT-OP-Q Treatments Start: 05/11/20 08:04 Freq: Status: Active Protocol: Document 06/03/20 09:47 MB (Rec: 06/03/20 10:32 MB [id number]) Therapeutic Exercises Sitting Exercises Therapy ball sitting Equipment Used 65 cm Comments Benefits of finding his ball at home to support spine and posture Cervical extension with hand support Comments B hand support occiput in sitting and standing Self-Care/Home Management Treatment Education Other Education Per MD order and PT and pt agreement, provided education and practice using Saunder's cervical traction today. 10 lb pull that tends to release with time and pt with incline lowest to middle and instructions in using towel roll at base, only forehead strap if needed, how to operate, theory in disc compression of spinal nerve roots, use in the early afternoon, LEs supported on wedge to allow more pressure through the occiput. Pt initially states he likes. Discussed benefits of rescheduling an appointment to a p.m. appointment to see if traction is helpful for the latter part of his day and pt will consider. PT-OP-T Assessment and Plan Start: 05/11/20 08:04 Freq: Status: Active Protocol: Document 06/03/20 09:47 MB (Rec: 06/03/20 10:32 MB [id number]) Physical Therapy Assessment Rehab Potential Rehabilitation Potential Good Evaluation Complexity Number of Personal Factors/Comorbidities 0 Number of Body Systems Impaired 1-2 Clinical Presentation at Evaluation Evolving Impairments Impairments Pain,Posture,ROM,Soft Tissue Mobility,Strength Goals 4 Fdc Goal (LTG) Pt will be able to perform Saplo game for 10 minutes without pain by 07/17/20. LTG Duration 8 weeks 3 Guest Relations Manager Goal (LTG) Pt will perform progressive HEP with I including postural, breathing, strengthening, relaxation, and balance exercises to improve qualtiy of life and performance of IADLs by 07/17/20. LTG Duration 8 weeks 2 Guest Relations Manager Goal (LTG) Pt will present with improved cervical AROM to at least 45 deg extension, 50 deg flexion and B cervical rotation 55 deg to improve ability to perform tasks of reading and gardening by 07/17/20. LTG Duration 8 weeks 1 Guest Relations Manager Goal (LTG) Pt will report an overall 75% improvement in neck pain and symptoms to improve overall quality of life by 07/17/20. LTG Duration 8 weeks Assessment Summary Assessment Initiated education and practice about use of [place] cervical traction unit today. Pt's symptoms usually exacerbate later in the day and he may benefit from a p.m. appointment in the future. Consider thoracic extension exercises on pool noodle in future treatments. Physical Therapy Plan Frequency and Duration Frequency of Treatment 2x/Week Duration of Treatment 8 weeks Plan of Care Start Date 05/17/20 Plan of Care End Date 07/18/20 Therapeutic Interventions Therapeutic Interventions Balance Training,Canalithic Repositioning,Home Exercise Program,Joint Mobilizations, Manual Therapy,Neuromuscular Re-education,Patient/Caregiver Education,Self-Care/Home Management,Sensory Integration ,Soft Tissue Mobilization, Taping,Therapeutic Activities, Therapeutic Exercises Modalities Cold Pack/Ice Massage,Electric Stimulation,Hot Packs, Traction- Mechanical, Ultrasound Next Visit Focus/Plan Next Note Type Treatment Note Next Visit Plan Progress postural exercises and manual work. Consider pect stretch over his therapy ball or pool noodle. Try p.m. treatment for traction machine .
--- NOTE | 2020-06-08 09:41 | PT.OTN ---
Current Diagnoses Spinal stenosis, cervical region (06/08/20) Physical Therapy Treatment Note PT-OP-A Visit Information Start: 05/11/20 08:04 Freq: Status: Active Protocol: Document 06/08/20 08:57 MB (Rec: 06/08/20 09:26 MB [id number]) Out-Patient Physical Therapy Visit Information Visit Information Visit Type Treatment Note Visit Note AARP Medicare Visit Start Time 08:57 Visit Stop Time 09:40 Total Visit Minutes 43 Visit Number 7 Precautions Precautions History of TIA x2 and pt on blood thinners. Order states try traction for C3 radiculopathy, will hold off to see if other interventions work first PT-OP-B Current Condition Start: 05/11/20 08:04 Freq: Status: Active Protocol: Document 05/17/20 09:44 MB (Rec: 05/17/20 10:08 MB [id number]) Current Condition History of Current Condition Onset Date 6-8 months ago Current Complaints Neck pain and tingling with reading, doing suduko and gardening History of Current Condition Pt denies an injury. He states that 6-8 months ago, he noted discomfort in his neck and tingling in his left neck area . He has most trouble with standing or sitting and looking down. Pt denies tingling and weakness in his arms. He is right handed. Pt likes to garden and read. He feels better if he keeps his head back. Pt reports if he is in the right position with sleeping, he is okay. He sleeps on his left or back with a couple of pillows under his head if on his back. Pt reports pain around upper neck rated 4/10 when it is bad . He gets into [place] and then gets pain. He states that the pain occ goes up into his jaw . PMH: TIA x2 2018 and 2019, bruises easily, pt takes a blood thinner and cholesterol medications, pt denies further cardiac history. Prior Treatments and Tests PT in the past for lower back issues and s/p laminectomies Cervical MRI 01/09/20: multifactorial degenerative changes and mild canal stenosis at C4-5 and multilevel moderate neural foraminal stenosis Treatment Goals Patient/Caregiver Goals To eliminate the pain and discomfort with activities PT-OP-C Subjective Start: 05/11/20 08:04 Freq: Status: Active Protocol: Document 06/08/20 08:57 MB (Rec: 06/08/20 09:26 MB [id number]) OP-PT Subjective Patient Comments Patient Comments Pt states that the traction unit seemed to help. He ordered one. It is supposed to arrive Saturday and he will bring in next PT treatment. PT-OP-J Posture/Palpation/Skin Start: 05/11/20 08:04 Freq: Status: Active Protocol: Document 05/17/20 09:44 MB (Rec: 05/17/20 10:49 MB [id number]) Posture Evaluation Comments Posture Comments Standing assessment and pt is wearing his shoes: decreased cervical lordosis, Dowager's hump, some lateral curvature at Dowager's hump area, decreased thoracic kyphosis and lumbar lordosis, anterior tilt pelvis, right shoulder and right iliac crest are mildly higher than the left, hypertrophied muscles left thoracolumbar spine, increased Kimberly angle, greater on the right. PT-OP-K Range of Motion Start: 05/11/20 08:04 Freq: Status: Active Protocol: Document 05/17/20 09:44 MB (Rec: 05/17/20 10:49 MB [id number]) Cervical Spine Range of Motion Cervical Spine Active Testing Position Standing Flexion 45 Extension 35 Rotation Left 45 Rotation Right 50 Lateral Flexion Left 11 Lateral Flexion Right 15 Shoulder Goniometric Range of Motion Shoulder Bilateral Shoulder ROM WFL Yes Testing Position Standing Comments Flexion and abduction normal in standing PT-OP-M Strength Start: 05/11/20 08:04 Freq: Status: Active Protocol: Document 05/17/20 09:44 MB (Rec: 05/17/20 10:49 MB [id number]) Shoulder Strength Shoulder Manual Muscle Testing Left Flexion 5 Normal Abduction (C5) 5 Normal External Rotation 4 Good Internal Rotation 5 Normal Right Flexion 5 Normal Abduction (C5) 5 Normal External Rotation 4 Good Internal Rotation 5 Normal Elbow/Forearm Strength Elbow and Forearm Manual Muscle Testing Left Flexion (C6) 5 Normal Pronation 5 Normal Supination 5 Normal Right Flexion (C6) 5 Normal Pronation 5 Normal Supination 5 Normal PT-OP-Q Treatments Start: 05/11/20 08:04 Freq: Status: Active Protocol: Document 06/08/20 08:57 MB (Rec: 06/08/20 09:26 MB [id number]) Therapeutic Exercises Supine Exercises Pool noodle exercises Supine Exercise Name Abdominal drawing in, pect stretch, shoulder flexion, Buteyko breathing, Ts Equipment Used Teal pool noodle Comments Also Xs over pool noodle Manual Therapy Treatment Other Other Manual Treatments Pt agrees to Counterstrain to assess and treat fascial tension. Pt presents with tension in the following fascial systems: spinal vein extension and PT treats stacks in this system and pt responds well. Self-Care/Home Management Treatment Education Other Education Use of traction machine for 10 minutes in p.m. and can bring to next PT treatment to review, contribution of thoracic spine to posture tension and pain and addressing this over pool noodle today PT-OP-T Assessment and Plan Start: 05/11/20 08:04 Freq: Status: Active Protocol: Document 06/08/20 08:57 MB (Rec: 06/08/20 09:26 MB [id number]) Physical Therapy Assessment Rehab Potential Rehabilitation Potential Good Evaluation Complexity Number of Personal Factors/Comorbidities 0 Number of Body Systems Impaired 1-2 Clinical Presentation at Evaluation Evolving Impairments Impairments Pain,Posture,ROM,Soft Tissue Mobility,Strength Goals 4 Rug Hooker Goal (LTG) Pt will be able to perform [place] game for 10 minutes without pain by 07/17/20. LTG Duration 8 weeks 3 Penitentiary Goal (LTG) Pt will perform progressive HEP with I including postural, breathing, strengthening, relaxation, and balance exercises to improve qualtiy of life and performance of IADLs by 07/17/20. LTG Duration 8 weeks 2 Rug Hooker Goal (LTG) Pt will present with improved cervical AROM to at least 45 deg extension, 50 deg flexion and B cervical rotation 55 deg to improve ability to perform tasks of reading and gardening by 07/17/20. LTG Duration 8 weeks 1 Rug Hooker Goal (LTG) Pt will report an overall 75% improvement in neck pain and symptoms to improve overall quality of life by 07/17/20. LTG Duration 8 weeks Assessment Summary Assessment Initiated pool noodle exercises today and will progress strengthening in future treatment date as pt responds well. Con't per plan below. Physical Therapy Plan Frequency and Duration Frequency of Treatment 2x/Week Duration of Treatment 8 weeks Plan of Care Start Date 05/17/20 Plan of Care End Date 07/18/20 Therapeutic Interventions Therapeutic Interventions Balance Training,Canalithic Repositioning,Home Exercise Program,Joint Mobilizations, Manual Therapy,Neuromuscular Re-education,Patient/Caregiver Education,Self-Care/Home Management,Sensory Integration ,Soft Tissue Mobilization, Taping,Therapeutic Activities, Therapeutic Exercises Modalities Cold Pack/Ice Massage,Electric Stimulation,Hot Packs, Traction- Mechanical, Ultrasound Next Visit Focus/Plan Next Note Type Treatment Note Next Visit Plan Consider further strengthening with therapy bands, core education, traction machine in p.m. treatment
--- NOTE | 2020-06-10 09:46 | PT.OTN ---
Current Diagnoses Spinal stenosis, cervical region (06/10/20) Physical Therapy Treatment Note PT-OP-A Visit Information Start: 05/11/20 08:04 Freq: Status: Active Protocol: Document 06/10/20 09:00 MB (Rec: 06/10/20 09:36 MB [id number]) Out-Patient Physical Therapy Visit Information Visit Information Visit Type Treatment Note Visit Note AARP Medicare Visit Start Time 09:00 Visit Stop Time 09:42 Total Visit Minutes 42 Visit Number 8 Precautions Precautions History of TIA x2 and pt on blood thinners. Order states try traction for C3 radiculopathy, will hold off to see if other interventions work first PT-OP-B Current Condition Start: 05/11/20 08:04 Freq: Status: Active Protocol: Document 05/17/20 09:44 MB (Rec: 05/17/20 10:08 MB [id number]) Current Condition History of Current Condition Onset Date 6-8 months ago Current Complaints Neck pain and tingling with reading, doing suduko and gardening History of Current Condition Pt denies an injury. He states that 6-8 months ago, he noted discomfort in his neck and tingling in his left neck area . He has most trouble with standing or sitting and looking down. Pt denies tingling and weakness in his arms. He is right handed. Pt likes to garden and read. He feels better if he keeps his head back. Pt reports if he is in the right position with sleeping, he is okay. He sleeps on his left or back with a couple of pillows under his head if on his back. Pt reports pain around upper neck rated 4/10 when it is bad . He gets into Sud[place] and then gets pain. He states that the pain occ goes up into his jaw . PMH: TIA x2 2018 and 2019, bruises easily, pt takes a blood thinner and cholesterol medications, pt denies further cardiac history. Prior Treatments and Tests PT in the past for lower back issues and s/p laminectomies Cervical MRI 01/09/20: multifactorial degenerative changes and mild canal stenosis at C4-5 and multilevel moderate neural foraminal stenosis Treatment Goals Patient/Caregiver Goals To eliminate the pain and discomfort with activities PT-OP-C Subjective Start: 05/11/20 08:04 Freq: Status: Active Protocol: Document 06/10/20 09:00 MB (Rec: 06/10/20 09:36 MB [id number]) OP-PT Subjective Patient Comments Patient Comments Pt states that he is feeling pretty good. PT-OP-J Posture/Palpation/Skin Start: 05/11/20 08:04 Freq: Status: Active Protocol: Document 05/17/20 09:44 MB (Rec: 05/17/20 10:49 MB [id number]) Posture Evaluation Comments Posture Comments Standing assessment and pt is wearing his shoes: decreased cervical lordosis, Dowager's hump, some lateral curvature at Dowager's hump area, decreased thoracic kyphosis and lumbar lordosis, anterior tilt pelvis, right shoulder and right iliac crest are mildly higher than the left, hypertrophied muscles left thoracolumbar spine, increased Kimberly angle, greater on the right. PT-OP-K Range of Motion Start: 05/11/20 08:04 Freq: Status: Active Protocol: Document 05/17/20 09:44 MB (Rec: 05/17/20 10:49 MB [id number]) Cervical Spine Range of Motion Cervical Spine Active Testing Position Standing Flexion 45 Extension 35 Rotation Left 45 Rotation Right 50 Lateral Flexion Left 11 Lateral Flexion Right 15 Shoulder Goniometric Range of Motion Shoulder Bilateral Shoulder ROM WFL Yes Testing Position Standing Comments Flexion and abduction normal in standing PT-OP-M Strength Start: 05/11/20 08:04 Freq: Status: Active Protocol: Document 05/17/20 09:44 MB (Rec: 05/17/20 10:49 MB [id number]) Shoulder Strength Shoulder Manual Muscle Testing Left Flexion 5 Normal Abduction (C5) 5 Normal External Rotation 4 Good Internal Rotation 5 Normal Right Flexion 5 Normal Abduction (C5) 5 Normal External Rotation 4 Good Internal Rotation 5 Normal Elbow/Forearm Strength Elbow and Forearm Manual Muscle Testing Left Flexion (C6) 5 Normal Pronation 5 Normal Supination 5 Normal Right Flexion (C6) 5 Normal Pronation 5 Normal Supination 5 Normal PT-OP-Q Treatments Start: 05/11/20 08:04 Freq: Status: Active Protocol: Document 06/10/20 09:00 MB (Rec: 06/10/20 09:36 MB [id number]) Therapeutic Exercises Supine Exercises Theraband strengthening on pool noodle Side bilateral Equipment Used Level 1 band Comments 10 reps B with cues, used level 1 band and gave level 2 for later Pool noodle exercises Supine Exercise Name Abdominal drawing in, pect stretch, shoulder flexion, Buteyko breathing, Ts Equipment Used Teal pool noodle Comments Also Xs over pool noodle Self-Care/Home Management Treatment Education Other Education PT coaches pt in setting up Warren Cervical Traction machine and he does everything for set-up, towel roll for upper back support, surface education, pumping, hold and release. Performed 10 minutes traction at pull 15 lb PT-OP-T Assessment and Plan Start: 05/11/20 08:04 Freq: Status: Active Protocol: Document 06/10/20 09:00 MB (Rec: 06/10/20 09:36 MB [id number]) Physical Therapy Assessment Rehab Potential Rehabilitation Potential Good Evaluation Complexity Number of Personal Factors/Comorbidities 0 Number of Body Systems Impaired 1-2 Clinical Presentation at Evaluation Evolving Impairments Impairments Pain,Posture,ROM,Soft Tissue Mobility,Strength Goals 4 Shirt Operator Goal (LTG) Pt will be able to perform Razor[employer] game for 10 minutes without pain by 07/17/20. LTG Duration 8 weeks 3 Shelter Goal (LTG) Pt will perform progressive HEP with I including postural, breathing, strengthening, relaxation, and balance exercises to improve qualtiy of life and performance of IADLs by 07/17/20. LTG Duration 8 weeks 2 Shirt Operator Goal (LTG) Pt will present with improved cervical AROM to at least 45 deg extension, 50 deg flexion and B cervical rotation 55 deg to improve ability to perform tasks of reading and gardening by 07/17/20. LTG Duration 8 weeks 1 Shirt Operator Goal (LTG) Pt will report an overall 75% improvement in neck pain and symptoms to improve overall quality of life by 07/17/20. LTG Duration 8 weeks Assessment Summary Assessment Progressed strengthening on pool noodle today and training on how to set up and use Warren Cervical Traction machine. His should arrive today and he will bring in as needed for practice and questions. Anticipate two more PT treatments. Physical Therapy Plan Frequency and Duration Frequency of Treatment 2x/Week Duration of Treatment 8 weeks Plan of Care Start Date 05/17/20 Plan of Care End Date 07/18/20 Therapeutic Interventions Therapeutic Interventions Balance Training,Canalithic Repositioning,Home Exercise Program,Joint Mobilizations, Manual Therapy,Neuromuscular Re-education,Patient/Caregiver Education,Self-Care/Home Management,Sensory Integration ,Soft Tissue Mobilization, Taping,Therapeutic Activities, Therapeutic Exercises Modalities Cold Pack/Ice Massage,Electric Stimulation,Hot Packs, Traction- Mechanical, Ultrasound Next Visit Focus/Plan Next Note Type Treatment Note Next Visit Plan P.m. treatment for him to bring in and try his cervical traction machine if needed. If not, review exercises and body mechanics handouts and education
--- NOTE | 2020-06-14 15:26 | PT.OTN ---
Current Diagnoses Spinal stenosis, cervical region (06/14/20) Physical Therapy Treatment Note PT-OP-A Visit Information Start: 05/11/20 08:04 Freq: Status: Active Protocol: Document 06/14/20 14:31 MB (Rec: 06/14/20 15:17 MB [id number]) Out-Patient Physical Therapy Visit Information Visit Information Visit Type Treatment Note Visit Note AARP Medicare Visit Start Time 14:31 Visit Stop Time 15:15 Total Visit Minutes 44 Visit Number 9 Precautions Precautions History of TIA x2 and pt on blood thinners. Order states try traction for C3 radiculopathy, will hold off to see if other interventions work first PT-OP-B Current Condition Start: 05/11/20 08:04 Freq: Status: Active Protocol: Document 05/17/20 09:44 MB (Rec: 05/17/20 10:08 MB [id number]) Current Condition History of Current Condition Onset Date 6-8 months ago Current Complaints Neck pain and tingling with reading, doing suduko and gardening History of Current Condition Pt denies an injury. He states that 6-8 months ago, he noted discomfort in his neck and tingling in his left neck area . He has most trouble with standing or sitting and looking down. Pt denies tingling and weakness in his arms. He is right handed. Pt likes to garden and read. He feels better if he keeps his head back. Pt reports if he is in the right position with sleeping, he is okay. He sleeps on his left or back with a couple of pillows under his head if on his back. Pt reports pain around upper neck rated 4/10 when it is bad . He gets into Sud[place]o and then gets pain. He states that the pain occ goes up into his jaw . PMH: TIA x2 2018 and 2019, bruises easily, pt takes a blood thinner and cholesterol medications, pt denies further cardiac history. Prior Treatments and Tests PT in the past for lower back issues and s/p laminectomies Cervical MRI 01/09/20: multifactorial degenerative changes and mild canal stenosis at C4-5 and multilevel moderate neural foraminal stenosis Treatment Goals Patient/Caregiver Goals To eliminate the pain and discomfort with activities PT-OP-C Subjective Start: 05/11/20 08:04 Freq: Status: Active Protocol: Document 06/14/20 14:31 MB (Rec: 06/14/20 15:17 MB [id number]) OP-PT Subjective Patient Comments Patient Comments Pt brings in his cervical traction machine. He has not tried it yet. PT-OP-J Posture/Palpation/Skin Start: 05/11/20 08:04 Freq: Status: Active Protocol: Document 05/17/20 09:44 MB (Rec: 05/17/20 10:49 MB [id number]) Posture Evaluation Comments Posture Comments Standing assessment and pt is wearing his shoes: decreased cervical lordosis, Dowager's hump, some lateral curvature at Dowager's hump area, decreased thoracic kyphosis and lumbar lordosis, anterior tilt pelvis, right shoulder and right iliac crest are mildly higher than the left, hypertrophied muscles left thoracolumbar spine, increased Kimberly angle, greater on the right. PT-OP-K Range of Motion Start: 05/11/20 08:04 Freq: Status: Active Protocol: Document 05/17/20 09:44 MB (Rec: 05/17/20 10:49 MB [id number]) Cervical Spine Range of Motion Cervical Spine Active Testing Position Standing Flexion 45 Extension 35 Rotation Left 45 Rotation Right 50 Lateral Flexion Left 11 Lateral Flexion Right 15 Shoulder Goniometric Range of Motion Shoulder Bilateral Shoulder ROM WFL Yes Testing Position Standing Comments Flexion and abduction normal in standing PT-OP-M Strength Start: 05/11/20 08:04 Freq: Status: Active Protocol: Document 05/17/20 09:44 MB (Rec: 05/17/20 10:49 MB [id number]) Shoulder Strength Shoulder Manual Muscle Testing Left Flexion 5 Normal Abduction (C5) 5 Normal External Rotation 4 Good Internal Rotation 5 Normal Right Flexion 5 Normal Abduction (C5) 5 Normal External Rotation 4 Good Internal Rotation 5 Normal Elbow/Forearm Strength Elbow and Forearm Manual Muscle Testing Left Flexion (C6) 5 Normal Pronation 5 Normal Supination 5 Normal Right Flexion (C6) 5 Normal Pronation 5 Normal Supination 5 Normal PT-OP-Q Treatments Start: 05/11/20 08:04 Freq: Status: Active Protocol: Document 06/14/20 14:31 MB (Rec: 06/14/20 15:17 MB [id number]) Self-Care/Home Management Treatment Education Other Education Pt brings in his own cervical traction machine and pt tolerates 15 lbs for 20 minutes. PT re-ed pt and pt performs set-up including adjusting neck wedges that are very tight on new machine and all other machine tasks. Ed pt that he can use 10-20 minutes in the afternoons at home given his response here in the afternoon today and after three times of use. Ed pt in body mechanics, desk and car ergonomics, engaging core , con't strengthening as provided previously. PT-OP-T Assessment and Plan Start: 05/11/20 08:04 Freq: Status: Active Protocol: Document 06/14/20 14:31 MB (Rec: 06/14/20 15:17 MB [id number]) Physical Therapy Assessment Rehab Potential Rehabilitation Potential Good Evaluation Complexity Number of Personal Factors/Comorbidities 0 Number of Body Systems Impaired 1-2 Clinical Presentation at Evaluation Evolving Impairments Impairments Pain,Posture,ROM,Soft Tissue Mobility,Strength Goals 4 [employer] Goal (LTG) Pt will be able to perform [employer] game for 10 minutes without pain by 07/17/20. LTG Duration 8 weeks 3 Care Home Goal (LTG) Pt will perform progressive HEP with I including postural, breathing, strengthening, relaxation, and balance exercises to improve qualtiy of life and performance of IADLs by 07/17/20. LTG Duration 8 weeks 2 Care Home Goal (LTG) Pt will present with improved cervical AROM to at least 45 deg extension, 50 deg flexion and B cervical rotation 55 deg to improve ability to perform tasks of reading and gardening by 07/17/20. LTG Duration 8 weeks 1 [employer] Goal (LTG) Pt will report an overall 75% improvement in neck pain and symptoms to improve overall quality of life by 07/17/20. LTG Duration 8 weeks Assessment Summary Assessment Self-care and home management this PT treatment encompasses set-up and use of his personal cervical traction machine, pt tolerates at least 20 minutes today, and body mechanics/ ergonomics training. Anticipate d/c next treatment date. Physical Therapy Plan Frequency and Duration Frequency of Treatment 2x/Week Duration of Treatment 8 weeks Plan of Care Start Date 05/17/20 Plan of Care End Date 07/18/20 Therapeutic Interventions Therapeutic Interventions Balance Training,Canalithic Repositioning,Home Exercise Program,Joint Mobilizations, Manual Therapy,Neuromuscular Re-education,Patient/Caregiver Education,Self-Care/Home Management,Sensory Integration ,Soft Tissue Mobilization, Taping,Therapeutic Activities, Therapeutic Exercises Modalities Cold Pack/Ice Massage,Electric Stimulation,Hot Packs, Traction- Mechanical, Ultrasound Next Visit Focus/Plan Next Note Type Discharge Summary
--- NOTE | 2020-06-16 15:02 | PT.OTN ---
Current Diagnoses Spinal stenosis, cervical region (06/16/20) Physical Therapy Treatment Note PT-OP-A Visit Information Start: 05/11/20 08:04 Freq: Status: Active Protocol: Document 06/16/20 14:34 MB (Rec: 06/16/20 15:01 MB [id number]) Out-Patient Physical Therapy Visit Information Visit Information Visit Type Treatment Note Visit Note AARP Medicare Visit Start Time 14:34 Visit Stop Time 14:58 Total Visit Minutes 24 Visit Number 10 Precautions Precautions History of TIA x2 and pt on blood thinners. Order states try traction for C3 radiculopathy, will hold off to see if other interventions work first PT-OP-B Current Condition Start: 05/11/20 08:04 Freq: Status: Active Protocol: Document 05/17/20 09:44 MB (Rec: 05/17/20 10:08 MB [id number]) Current Condition History of Current Condition Onset Date 6-8 months ago Current Complaints Neck pain and tingling with reading, doing suduko and gardening History of Current Condition Pt denies an injury. He states that 6-8 months ago, he noted discomfort in his neck and tingling in his left neck area . He has most trouble with standing or sitting and looking down. Pt denies tingling and weakness in his arms. He is right handed. Pt likes to garden and read. He feels better if he keeps his head back. Pt reports if he is in the right position with sleeping, he is okay. He sleeps on his left or back with a couple of pillows under his head if on his back. Pt reports pain around upper neck rated 4/10 when it is bad . He gets into Sud[place]o and then gets pain. He states that the pain occ goes up into his jaw . PMH: TIA x2 2018 and 2019, bruises easily, pt takes a blood thinner and cholesterol medications, pt denies further cardiac history. Prior Treatments and Tests PT in the past for lower back issues and s/p laminectomies Cervical MRI 01/09/20: multifactorial degenerative changes and mild canal stenosis at C4-5 and multilevel moderate neural foraminal stenosis Treatment Goals Patient/Caregiver Goals To eliminate the pain and discomfort with activities PT-OP-C Subjective Start: 05/11/20 08:04 Freq: Status: Active Protocol: Document 06/16/20 14:34 MB (Rec: 06/16/20 15:01 MB [id number]) OP-PT Subjective Patient Comments Patient Comments Pt states that he is doing well. He did some of his PT exercises today and understands how to use his cervical traction machine. PT-OP-J Posture/Palpation/Skin Start: 05/11/20 08:04 Freq: Status: Active Protocol: Document 05/17/20 09:44 MB (Rec: 05/17/20 10:49 MB [id number]) Posture Evaluation Comments Posture Comments Standing assessment and pt is wearing his shoes: decreased cervical lordosis, Dowager's hump, some lateral curvature at Dowager's hump area, decreased thoracic kyphosis and lumbar lordosis, anterior tilt pelvis, right shoulder and right iliac crest are mildly higher than the left, hypertrophied muscles left thoracolumbar spine, increased Kimberly angle, greater on the right. PT-OP-K Range of Motion Start: 05/11/20 08:04 Freq: Status: Active Protocol: Document 05/17/20 09:44 MB (Rec: 05/17/20 10:49 MB [id number]) Cervical Spine Range of Motion Cervical Spine Active Testing Position Standing Flexion 45 Extension 35 Rotation Left 45 Rotation Right 50 Lateral Flexion Left 11 Lateral Flexion Right 15 Shoulder Goniometric Range of Motion Shoulder Bilateral Shoulder ROM WFL Yes Testing Position Standing Comments Flexion and abduction normal in standing PT-OP-M Strength Start: 05/11/20 08:04 Freq: Status: Active Protocol: Document 05/17/20 09:44 MB (Rec: 05/17/20 10:49 MB [id number]) Shoulder Strength Shoulder Manual Muscle Testing Left Flexion 5 Normal Abduction (C5) 5 Normal External Rotation 4 Good Internal Rotation 5 Normal Right Flexion 5 Normal Abduction (C5) 5 Normal External Rotation 4 Good Internal Rotation 5 Normal Elbow/Forearm Strength Elbow and Forearm Manual Muscle Testing Left Flexion (C6) 5 Normal Pronation 5 Normal Supination 5 Normal Right Flexion (C6) 5 Normal Pronation 5 Normal Supination 5 Normal PT-OP-Q Treatments Start: 05/11/20 08:04 Freq: Status: Active Protocol: Document 06/16/20 14:34 MB (Rec: 06/16/20 15:01 MB [id number]) Therapeutic Exercises Standing Exercises Racquet ball self-massage Standing Exercise Name Intrascapular muscles, infraspinatus MWM Side bilateral Other Exercises Reviewed HEP Comments Reviewed exercises today in preparation for d/c PT-OP-T Assessment and Plan Start: 05/11/20 08:04 Freq: Status: Active Protocol: Document 06/16/20 14:34 MB (Rec: 06/16/20 15:01 MB [id number]) Physical Therapy Assessment Goals 4 Fdc Goal (LTG) Pt will be able to perform [employer] game for 10 minutes without pain by 07/17/20. 06/16/20: Goal met and pt is being careful about how he sits and he takes breaks LTG Duration Met 3 [employer] Goal (LTG) Pt will perform progressive HEP with I including postural, breathing, strengthening, relaxation, and balance exercises to improve qualtiy of life and performance of IADLs by 07/17/20. 06/16/20: Pt likes pool noodle exercises, racquet ball exercises, cervical traction machine and breathing exercises. LTG Duration Met 2 [employer] Goal (LTG) Pt will present with improved cervical AROM to at least 45 deg extension, 50 deg flexion and B cervical rotation 55 deg to improve ability to perform tasks of reading and gardening by 07/17/20. 06/16/20: Cervical extension 46 deg, flexion 60 deg; rotation left 52 deg and right 62 deg LTG Duration Partially met 1 [employer] Goal (LTG) Pt will report an overall 75% improvement in neck pain and symptoms to improve overall quality of life by 07/17/20. 06/16/20: Pt reports that he does feel 75% better since starting PT. He is more aware of posture and is taking breaks. Some positions causing problems have not changed too much. LTG Duration Met Assessment Summary Assessment Pt has met the following PT goals since starting PT: cervical flexion, extension and right rotation ROM, reports of improvement in pain and being able to do suduko for 10 minutes without discomfort and performance of HEP including cervical traction machine at home. He has progressed towards left cervical rotation goal. He has maximized PT potential. Will d/c PT.
== END 2020-06-17 10:12 | disposition home or self-care (01) ==
LOC: PHYS 14:30
PROVIDERS: Family Provider Physician Assistant; PCP Physician Assistant; Referring Provider Neurological Surgery; Visit Provider Neurological Surgery
DX: M48.02 Spinal stenosis, cervical region (principal)
CPT/HCPCS: 97110; 97140; 97161; 97535

== ENCOUNTER 2021-06-05 13:56 | Emergency (ER) | payer OTHER, SELFPAY ==
[2021-06-05 14:03] VITALS: BP 186/81; PULSE 77; RESP 16; TEMP 36.9; O2SAT 99
--- NOTE | 2021-06-05 14:05 | DI.RAD.S_ITS ---
PROCEDURE: XR CHEST 1V INDICATIONS: chest pain TECHNIQUE: One view of the chest was acquired. COMPARISON: [facility], CHEST 1 VIEW, 12/08/2016, 20:49. [facility], CHEST 2 VIEW, 09/15/2013, 9:43. FINDINGS: Surgical changes and devices: None. Lungs and pleura: No focal infiltrates are seen. A stable calcified granuloma can be seen involving the lingula. No pleural effusions or pneumothorax. Low lung volumes are noted. This causes a crowded appearance to the lung markings and limits evaluation. Mediastinum: Mediastinal contours appear normal. Heart size is normal. Bones and chest wall: No suspicious bony lesions. Age-appropriate bony degenerative changes are seen. Overlying soft tissues appear unremarkable. IMPRESSION: Limited portable chest examination, without a significant cardiopulmonary abnormality identified. Dictated by: Carter Davila M.D. on 06/05/2021 at 13:29 Approved by: Carter Davlia M.D. on 06/05/2021 at 13:30
[2021-06-05 14:31] LABS: Hematocrit 39.6 % (41-53); Hemoglobin 13.7 g/dL (13.5-17.5); Mean Corpuscular HGB Conc 34.6 % (30-36); Mean Corpuscular Hemoglobin 29.2 PG (26-34); Mean Corpuscular Volume 84.3 fL (80-100); Platelet Count 172 X10^3/uL (150-400); Red Cell Distribution Width 17.8 % (11.6-14.8); White Blood Cell Count 5.4 X10^3/uL (4.5-11.0)
[2021-06-05 14:33] LABS: Add Manual Diff / Slide Review YES
[2021-06-05 14:39] LABS: Alanine Aminotransferase 32 IU/L (<50); Albumin 4.5 g/dL (3.5-5.0); Albumin Globulin Ratio 1.9 (1.0-2.8); Alkaline Phosphatase 123 U/L (38-126); Aspartate Aminotransferase 35 IU/L (17-59); BUN Creatinine Ratio 25.3 (6-22); Blood Urea Nitrogen 20 mg/dL (9-20); Calcium 9.1 mg/dL (8.4-10.2); Carbon Dioxide 27 mmol/L (22-32); Chloride 106 mmol/L (98-107); Creatine Kinase 70 U/L (55-170); Estimated Glomerular Filt Rate > 60 mL/min (>60); Globulin 2.4 g/dL (1.7-4.1); Glucose 92 mg/dL (80-110); HEMOLYSIS < 15 (0-50); Lipase 118 U/L (23-300); Magnesium 2.1 mg/dL (1.6-2.3); Potassium 3.6 mmol/L (3.4-5.1); Sodium 139 mmol/L (137-145); Total Protein 6.9 g/dL (6.3-8.2)
[2021-06-05 14:51] LABS: Troponin I < 0.012 ng/mL (0.01-0.034)
[2021-06-05 15:08] LABS: NT-proBNP (BNP-Adult 18+) 67 pg/mL (<450); Neutrophils Absolute Manual 3888 /uL (3000-5900); Total Cells Counted 100
[2021-06-05 15:09] LABS: Anisocytosis 1+
--- NOTE | 2021-06-05 15:09 | ED.CHESTPAIN ---
HPI - Chest Pain General Chief Complaint: Chest Pain Stated Complaint: funny things in heart Time Seen by Provider: 06/05/21 14:37 Source: patient Mode of arrival: Ambulatory Limitations: no limitations Limitations: no limitations History of Present Illness HPI narrative: This is an 81-year-old male who comes with complaint of chest pressure that is been intermittent for the past 4 days. He describes it as being central, nonradiating nothing seems to exacerbate it. Somewhat alleviated with rest. Last for about 20 minutes. He does not have any additional symptoms. No shortness of breath, no nausea vomiting, no diaphoresis, no swelling or skin changes such as rash or blistering. Patient has not had any swelling in his extremities. Denies any issues with bowel movements. He sometimes has issues with urination he states typical of increasing age. No dizziness, lightheadedness or passing out. He is on Plavix and a statin for dyslipidemia. He states either his only 2 medications he had a TIA in the past. No known coronary artery disease no prior stents or stress test. Prior history of surgery. No allergies to medications. No tobacco, alcohol or illicit. Monika Quiros is his primary care. Related Data Home Medications Medication Instructions Recorded Confirmed ranitidine HCl 300 mg tablet 300 mg PO QDAY #0 12/03/16 (Zantac) Previous Rx's Medication Instructions Recorded aspirin 81 mg tablet,delayed 81 mg PO QDAY #30 tab 12/04/16 release atorvastatin 40 mg tablet (Lipitor) 40 mg PO HS #30 tab 12/04/16 clopidogrel 75 mg tablet (Plavix) 75 mg PO QDAY #30 tab 12/04/16 Allergies Allergy/AdvReac Type Severity Reaction Status Date / Time sildenafil [From VIAGRA] AdvReac Mild VISION Verified 08/29/17 11:13 CHANGES Review of Systems Review of Systems ROS Unobtainable: All systems reviewed & are unremarkable except as noted in HPI and below Patient History Medical History TIA (transient ischemic attack) Social History Smoking Status: Never smoker second hand exposure: No alcohol intake: current substance use type: does not use caffeine: Yes Smoking Status: Never smoker Exam Narrative Exam Narrative: GENERAL: Alert and oriented x three, male in mild distress. HEENT: Head normocephalic, atraumatic, EOMI, pupils reactive, face symmetric, moist mucous membranes NECK: Supple, full range of motion CARDIOVASCULAR: Regular rate and rhythm without murmurs, rubs or gallops. RESPIRATORY: Breath sounds equal bilaterally, no wheezes rales or rhonchi. ABDOMEN: Soft, nontender. Normoactive bowel sounds all 4 quadrants. No guarding or rebound, rigidity, no mass : No CVA tenderness EXTREMITIES: Normal range of motion, no edema. Neurovascularly intact NEUROLOGICAL: Cranial nerves II through XII grossly intact. Moving all extremities SKIN: Warm, dry, no petechiae, no rashes or lesions. Initial Vital Signs Initial Vital Signs: Vital Signs Temperature 98.5 F 06/05/21 14:03 Pulse Rate 77 06/05/21 14:03 Respiratory Rate 16 06/05/21 14:03 Blood Pressure 186/81 H 06/05/21 14:03 Pulse Oximetry 99 06/05/21 14:03 Scores HEART Score Heart Score history: Moderately Suspicious Heart Score EKG: Normal Heart Score Age: > or = 65 years old Heart Score risk factors: 1-2 risk factors Heart Score troponin: < or = to normal limit Heart Score Total: 4 Course Orders Ordered: Discontinued Medications Aspirin (Aspirin 81 Mg Chew Tab) 324 mg PO NOW ONE Stop: 06/05/21 15:24 Last Admin: 06/05/21 16:17 Dose: 324 mg Documented by: GIULIA Reevaluation(s) Reevaluation #1: Patient continues to be asymptomatic. Time: 16:34 Reevaluation #2: Discussed with patient I would like to keep him for chest pain observation. He does have some change in his EKG in 2 leads and I am concern for cardiac cause. Discussed that I talked to Cardiology they recommend observation as well. Patient is reluctant to stay today secondary to other obligations. He is understanding of the risks and that he could potentially have heart and . And that I cannot predict if this could happen. Time: 17:45 Consultations Consultation #1: Dr. Sin, cardiology does recommend observation for chest pain rule out. Time: 17:30 Vital Signs Vital signs: Vital Signs - 8 hr 06/05/21 14:03 06/05/21 15:19 06/05/21 16:30 Temperature 98.5 F Pulse Rate 77 66 Pulse Rate [Orthostatic Lying] 75 Pulse Rate [Orthostatic Sitting] 74 Pulse Rate [Orthostatic Standing] 76 Respiratory Rate 16 21 Blood Pressure 186/81 H 144/71 H Blood Pressure [Orthostatic Lying] 138/69 Blood Pressure [Orthostatic Sitting] 112/56 L Blood Pressure [Orthostatic Standing] 114/79 Pulse Oximetry 99 99 06/05/21 17:00 06/05/21 17:30 Temperature Pulse Rate 63 66 Pulse Rate [Orthostatic Lying] Pulse Rate [Orthostatic Sitting] Pulse Rate [Orthostatic Standing] Respiratory Rate 13 15 Blood Pressure 139/70 155/68 H Blood Pressure [Orthostatic Lying] Blood Pressure [Orthostatic Sitting] Blood Pressure [Orthostatic Standing] Pulse Oximetry 98 98 MDM - Chest Pain Lab Data Result diagrams: 06/05/21 14:20 06/05/21 14:20 Labs: Lab Results 06/05/21 06/05/21 06/05/21 Range/Units 14:20 14:20 14:20 WBC 5.4 (4.5-11.0) X10^3/uL RBC 4.70 (4.5-5.9) X10^6/uL Hgb 13.7 (13.5-17.5) g/dL Hct 39.6 L (41-53) % MCV 84.3 (80-100) fL MCH 29.2 (26-34) PG MCHC 34.6 (30-36) % RDW 17.8 H (11.6-14.8) % Plt Count 172 (150-400) X10^3/uL Neut % (Auto) Not Reportable Lymph % (Auto) Not Reportable [place] % (Auto) Not Reportable Eos % (Auto) Not Reportable Baso % (Auto) Not Reportable Lymph # (Auto) Not Reportable [place] # (Auto) Not Reportable Baso # (Auto) Not Reportable Total Counted 100 Seg Neutrophils % 72.0 H (38-70) % Lymphocytes % (Manual) 21.0 L (25-45) % Monocytes % (Manual) 7.0 (2-11) % Neutrophils # (Manual) 3888 (0312-4617) /uL Plt Morphology Comment RBC Morphology See below Anisocytosis 1+ H Sodium 139 (137-145) mmol/L Potassium 3.6 (3.4-5.1) mmol/L Chloride 106 (98-107) mmol/L Carbon Dioxide 27 (22-32) mmol/L BUN 20 (9-20) mg/dL Creatinine 0.79 (0.66-1.25) mg/dL Estimated GFR > 60 (>60) mL/min BUN/Creatinine Ratio 25.3 H (6-22) Glucose 92 (80-110) mg/dL Calcium 9.1 (8.4-10.2) mg/dL Magnesium 2.1 (1.6-2.3) mg/dL Total Bilirubin 1.0 (0.2-1.3) mg/dL AST 35 (17-59) IU/L ALT 32 (<50) IU/L Alkaline Phosphatase 123 (38-126) U/L Total Creatine Kinase 70 (55-170) U/L CK-MB (CK-2) TNP CK-MB (CK-2) Rel Index TNP Troponin I < 0.012 (0.01-0.034) ng/mL NT-Pro-B Natriuret Pep 67 (<450) pg/mL Total Protein 6.9 (6.3-8.2) g/dL Albumin 4.5 (3.5-5.0) g/dL Globulin 2.4 (1.7-4.1) g/dL Albumin/Globulin Ratio 1.9 (1.0-2.8) Lipase 118 (23-300) U/L SARS-CoV-2 (PCR) (Negative) 06/05/21 06/05/21 Range/Units 16:20 16:23 WBC (4.5-11.0) X10^3/uL RBC (4.5-5.9) X10^6/uL Hgb (13.5-17.5) g/dL Hct (41-53) % MCV (80-100) fL MCH (26-34) PG MCHC (30-36) % RDW (11.6-14.8) % Plt Count (150-400) X10^3/uL Neut % (Auto) Lymph % (Auto) [place] % (Auto) Eos % (Auto) Baso % (Auto) Lymph # (Auto) [place] # (Auto) Baso # (Auto) Total Counted Seg Neutrophils % (38-70) % Lymphocytes % (Manual) (25-45) % Monocytes % (Manual) (2-11) % Neutrophils # (Manual) (3442-2611) /uL Plt Morphology Comment RBC Morphology Anisocytosis Sodium (137-145) mmol/L Potassium (3.4-5.1) mmol/L Chloride (98-107) mmol/L Carbon Dioxide (22-32) mmol/L BUN (9-20) mg/dL Creatinine (0.66-1.25) mg/dL Estimated GFR (>60) mL/min BUN/Creatinine Ratio (6-22) Glucose (80-110) mg/dL Calcium (8.4-10.2) mg/dL Magnesium (1.6-2.3) mg/dL Total Bilirubin (0.2-1.3) mg/dL AST (17-59) IU/L ALT (<50) IU/L Alkaline Phosphatase (38-126) U/L Total Creatine Kinase (55-170) U/L CK-MB (CK-2) CK-MB (CK-2) Rel Index Troponin I < 0.012 (0.01-0.034) ng/mL NT-Pro-B Natriuret Pep (<450) pg/mL Total Protein (6.3-8.2) g/dL Albumin (3.5-5.0) g/dL Globulin (1.7-4.1) g/dL Albumin/Globulin Ratio (1.0-2.8) Lipase (23-300) U/L SARS-CoV-2 (PCR) Negative (Negative) Imaging Data Chest x-ray: Radiologist's Impression: [address] [address] XRay Report Signed Patient: Dane Godinez MR#: [id number] : 1940 Acct:[id number] Age/Sex: 81 / M Date of Service: 06/05/21 Loc: ED Accession Number: [id number] ?? Procedure: XR chest 1V Ordering Provider: Blanca Pineda D.O. PROCEDURE:? XR CHEST 1V ? INDICATIONS:? chest pain ? TECHNIQUE:? One view of the chest was acquired.? ? COMPARISON:? [facility], , CHEST 1 VIEW, 12/08/2016, 20:49.? [facility], CR, CHEST 2 VIEW, 09/15/2013, 9:43. ? FINDINGS:? ? Surgical changes and devices:? None.? ? Lungs and pleura:? No focal infiltrates are seen.? A stable calcified granuloma can be seen involving the lingula.? No pleural effusions or pneumothorax.? Low lung volumes are noted. This causes a crowded appearance to the lung markings and limits evaluation.? ? Mediastinum:? Mediastinal contours appear normal.? Heart size is normal.? ? Bones and chest wall:? No suspicious bony lesions.? Age-appropriate bony degenerative changes are seen.? Overlying soft tissues appear unremarkable.? ? ? IMPRESSION:? ? Limited portable chest examination, without a significant cardiopulmonary abnormality identified.? ? ? Dictated by: Carter Davila M.D. on 06/05/2021 at 13:29 ? ? Approved by: Carter Davila M.D. on 06/05/2021 at 13:30? ECG Data Attestation: I personally reviewed and interpreted this ECG as follows: Prior ECG tracings: not available for review Interpretation: Sinus rhythm rate of 81 MO 168 QRS of 92 QTC of 425. No acute ST elevation depression noted. No priors available for review EKG 2 shows sinus rhythm rate of 65 MO 182 QRS 96 QTC 416. Patient does appear to have a changes need 3 with a flipped T-wave in either Q-wave or deep S-wave in AVF appears to have more of an RS are where this was not present on the last EKG. No other acute changes. MDM Narrative Medical decision making narrative: This is an 81-year-old male comes in with complaint of intermittent chest pressure. Patient's have symptoms for last 4 days. He has some risk factors with prior TIA. No known coronary artery disease but has had a past stroke he is on Plavix and a statin. Patient did not have any acute EKG changes on initial EKG, troponin was negative, these were repeated patient has some change in lead 3.x-ray and lab work does not show acute changes today. Discussed I would like to keep patient observation for chest pain rule out. Discussed with cardiology, Dr. Sin who does recommend observation for chest pain rule out. Discussed with patient he is reluctant to stay. We discussed that he does have risk factors, he has had prior stroke, would like to keep him for stress testing and rule out and that we cannot rule out a cardiac cause or potential acute coronary syndrome or heart attack. Patient expresses understanding. He would like to return home he is going to contact his physician tomorrow to try to set up follow-up and discuss we will also try to reach out to his primary care and I gave him referral to Cardiology as well. Discharge Plan Departure Patient Disposition: Home Clinical Impression: Chest pain Instructions: DI for Chest Pain Activity Restrictions/Additional Instructions: Your EKG today does show some change concerning for cardiac cause of her chest pain is recommended you stay for observation and stress testing tomorrow. Call your primary care physician tomorrow to set up stress testing as an outpatient as discussed. Also included is Cardiology referral to Dr. Sin. It is recommended you try to have a stress test within the next 1-3 days. Continue home medications as prescribed. You may return at any time for recheck, return if new chest pain, shortness of breath, lightheadedness or passing out, swelling of her extremities, diaphoresis or sweatiness or other new or concerning symptoms. Prescriptions: No Action ranitidine HCl [Zantac] 300 MG tablet 300 mg PO QDAY Qty: 0 0RF aspirin 81 MG tablet,delayed release (DR/EC) 81 mg PO QDAY Qty: 30 0RF atorvastatin [Lipitor] 40 MG tablet 40 mg PO HS Qty: 30 0RF clopidogrel [Plavix] 75 MG tablet 75 mg PO QDAY Qty: 30 2RF Referrals: Rehana Quiros PA-C [Family Provider] - Lcuie Sin MD [Physician] -
[2021-06-05 15:19] VITALS: BP 112/56; BP 114/79; BP 138/69; PULSE 74; PULSE 75; PULSE 76
[2021-06-05] MEDS: ASPIRIN 81 MG CHEW TAB 324 MG PO (16:17)
[2021-06-05 16:30] VITALS: BP 144/71; PULSE 66; RESP 21; O2SAT 99
[2021-06-05 16:55] LABS: Troponin I < 0.012 ng/mL (0.01-0.034)
[2021-06-05 16:59] LABS: COVID19 -Nasal RAPID Negative (Negative)
[2021-06-05 17:00] VITALS: BP 139/70; PULSE 63; RESP 13; O2SAT 98
[2021-06-05 17:30] VITALS: BP 155/68; PULSE 66; RESP 15; O2SAT 98
== END 2021-06-05 17:51 | disposition home or self-care (01) ==
PROVIDERS: Emergency Provider Emergency Medicine; Family Provider Physician Assistant
DX: R07.89 Other chest pain (principal); Z20.822 Contact with and (suspected) exposure to COVID-19
CPT/HCPCS: 36415; 71045; 80053; 82550; 83690; 83735; 83880; 84484; 85007; 85025; 87635; 93005; 99284; C9803

== ENCOUNTER → 2021-06-29 14:29 | Outpatient (CLI) | payer OTHER, SELFPAY ==
--- NOTE | 2021-06-29 14:32 | DI.US.S_ITS ---
PROCEDURE: US SCROTUM INDICATIONS: ENLARGED TESTICLE TECHNIQUE: Real-time scanning was performed of the scrotum and testicles, with image documentation. Color and pulse Doppler interrogation was performed of both testicles. COMPARISON: None. FINDINGS: Right: The right testicle is enlarged, measuring 7.9 x 4.4 x 5.6 cm. The testicle appears markedly heterogeneous with numerous cystic spaces throughout the testicle. Blood flow appears increased when compared to the contralateral side. The right epididymis is not well visualized. No hydrocele or varicoceles. Overlying scrotal skin is normal in thickness. Left: Testicle is normal in size at 2.5 x 1.3 x 2.3 cm, and homogeneous in echotexture. Two simple cysts are seen in the left epididymal head. Epididymis is otherwise normal in overall size and morphology. No hydrocele or varicoceles. Overlying scrotal skin is normal in thickness. Doppler: Color and pulse Doppler demonstrate normal and symmetric arterial flow in both testicles. 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 Recommend Urology consultation. Dictated by: Farhan Yuen M.D. on 06/29/2021 at 16:07 Approved by: Farhan Yuen M.D. on 06/29/2021 at 16:16
== END ==
PROVIDERS: Family Provider Physician Assistant; PCP Family Medicine; Referring Provider Family Medicine; Visit Provider Family Medicine
DX: N44.8 Other noninflammatory disorders of the testis (principal)
CPT/HCPCS: 76870

== ENCOUNTER → 2021-07-19 13:57 | Outpatient (CLI) | payer OTHER, SELFPAY ==
[2021-07-19 14:18] LABS: COVID19 -Nasal RAPID Negative (Negative)
== END ==
PROVIDERS: Family Provider Physician Assistant; PCP Family Medicine; Visit Provider Specialist
DX: Z20.822 Contact with and (suspected) exposure to COVID-19 (principal)
CPT/HCPCS: 87635

== ENCOUNTER → 2021-07-19 14:11 | Outpatient (CLI) | payer OTHER, SELFPAY ==
[2021-07-19 14:58] LABS: Blood Urea Nitrogen 17 mg/dL (9-20); Calcium 9.1 mg/dL (8.4-10.2); Carbon Dioxide 28 mmol/L (22-32); Chloride 103 mmol/L (98-107); Estimated Glomerular Filt Rate > 60 mL/min (>60); Glucose 107 mg/dL (80-110); HEMOLYSIS < 15 (0-50); Lactate Dehydrogenase 511 U/L (313-618); Potassium 4.2 mmol/L (3.4-5.1); Sodium 137 mmol/L (137-145)
[2021-07-19 15:12] LABS: HCG Quantitative /Beta subunit < 2.4 mIU/mL (<2.40)
[2021-07-20 06:18] LABS: Alpha Fetoprotein 2.4 ng/mL (0.0-8.4)
== END ==
PROVIDERS: Family Provider Physician Assistant; PCP Family Medicine; Referring Provider Specialist; Visit Provider Specialist
DX: I10 Essential (primary) hypertension (principal); N50.811 Right testicular pain; N50.89 Other specified disorders of the male genital organs; N40.0 Benign prostatic hyperplasia without lower urinary tract symptoms
CPT/HCPCS: 36415; 80048; 82105; 83615; 84702

== ENCOUNTER → 2021-07-19 14:28 | Outpatient (CLI) | payer OTHER, SELFPAY ==
--- NOTE | 2021-07-19 14:29 | DI.CT.S_ITS ---
PROCEDURE: CT ABDOMEN PELVIS WO/W CON INDICATIONS: Testicular CA TECHNIQUE: Optional 5 mm thick noncontrast images acquired from the diaphragm to the symphysis pubis. After the administration of intravenous contrast, 5 mm thick images acquired from the diaphragm to the symphysis pubis after a 10-minute delay. 2 mm thick coronal and sagittal reformats were then performed of the kidneys and ureters. For radiation dose reduction, the following was used: automated exposure control, adjustment of mA and/or kV according to patient size. COMPARISON: [facility], , US SCROTUM, 06/29/2021, 14:51. FINDINGS: Image quality: Excellent. Lung bases: Lung bases are clear. Heart size is normal. Calcified nodule at the cardiac apex in the epicardial fat. Urinary system: Both kidneys are normal in size, without hydronephrosis or nephrolithiasis on pre-contrast images. No perinephric fat stranding. There is normal bilateral renal enhancement. Renal calyces appear normal in morphology when filled with contrast. Opacified portions of both ureters demonstrate normal caliber. Bladder wall thickness is normal. No calcified bladder stones. The prostate gland is not significantly enlarged but contains mildly hypertrophied median lobe indenting on the bladder base. Heterogeneous mass is seen filling the right hemiscrotum measuring approximately 5.3 x 8.5 x 5.0 cm. The right kidney and all vein is not enlarged or nodular. No adjacent hydrocele. The left testicle is diminutive. Small fat containing right inguinal hernia. Other solid organs: There are at least four cysts in the liver. No suspicious enhancing lesions. There is a single subcapsular coarse calcification. The gallbladder appears normal. Normal size spleen. No adrenal masses. Normal pancreas. Peritoneum and bowel: Stomach and small bowel are normal. There is moderate diverticulosis of the sigmoid colon. No free fluid or free air. Nodes and vessels: No bulky retroperitoneal adenopathy. No suspicious mesenteric mass. The largest aortocaval lymph node is dorsal to the uncinate process of the pancreas and measures 6 mm in short axis. The largest left periaortic node measures 7 mm at the mid aortic level. Abdominal wall: Tiny fat containing umbilical hernia. Pelvis: No free fluid. There are changes of probable prior left inguinal hernia repair. Small fat containing right inguinal hernia. Bones: No suspicious bony lesions. No vertebral body compression fractures. Lower lumbar disc degeneration. IMPRESSION: 1. 8.5 cm right testicular mass. 2. Borderline retroperitoneal lymph nodes as described. 3. No evidence of metastatic disease in the abdomen or pelvis. Dictated by: Jennifer Pedro M.D. on 07/19/2021 at 17:50 Approved by: Jennifer Pedro M.D. on 07/19/2021 at 18:01
== END ==
PROVIDERS: Family Provider Physician Assistant; PCP Family Medicine; Referring Provider Specialist; Visit Provider Specialist
DX: N50.89 Other specified disorders of the male genital organs (principal); N50.811 Right testicular pain; N40.0 Benign prostatic hyperplasia without lower urinary tract symptoms; I10 Essential (primary) hypertension; Z20.822 Contact with and (suspected) exposure to COVID-19; D29.21 Benign neoplasm of right testis
CPT/HCPCS: 36415; 74178; 80048; 81002; 82105; 83615; 84702; 87635; 99215; Q9967

== ENCOUNTER 2021-07-21 06:36 | Day surgery (SDC) | payer OTHER, SELFPAY ==
[2021-07-19 08:40] VITALS: BMI 24.0
[2021-07-21] VITALS (8 sets, daily range): BP systolic 125–148; BP diastolic 61–71; PULSE 68–87; RESP 12–16; TEMP 36.2–36.9; O2SAT 96–100; BMI 24.0
--- NOTE | 2021-07-21 | PATH_ITS ---
[facility] Accession Number: [id number] . 01 Material submitted: . testis - RIGHT TESTICAL AND CORD . 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 -Tumor focality: Unifocal. -Tumor size: 6.5 cm in maximum dimension. -Histologic type: Spermatocytic tumor (other germ cell components and germ cell neoplasia in situ not identified). -Tumor extent: Limited to testis. -Lymphovascular invasion: Not identified. -Margin status: All margins negative for tumor. -Regional lymph node status: Not applicable. -Pathologic stage classification: pT1b. -Additional findings: Benign lipoma of spermatic cord. V 07/26/2021 1723 Local . 01 Comment: The neoplasm is circumscribed and at low power appears homogeneous, composed of diffuse sheet of round cells with central nuclei exhibiting a tripartite cytology predominated by intermediate sized cells with inconspicuous nucleoli, intermixed with small round cells with dark nuclei and scattered large cells with multilobated nuclei or multinucleation. Fibrous septae and lymphoid infiltrates are not prominent. A sarcomatous component is not seen. . A panel of *immunostains is obtained to further classify, with the controls stained appropriately. The tumor shows the following results: . Broad spectrum cytokeratins (WHITNEY): Negative. SALL4: Uniformly positive. OCT3/4: Negative. CD117: Variably positive. SOX10: Negative. Synaptophysin: Negative. Leukocyte common antigen: Negative. . These results confirm germ cell orgin given expression of SALL4 and exclude a melanoma (negative SOX10), neuroendocrine neoplasm (negative synaptophysin), or lymphoma (negative LCA). 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 Furthermore, although not identified by routine H/E stain, foci of other germ cell tumors are not highlighted with the WHITNEY. . * This test was developed and its performance characteristics determined by [facility]. It has not been cleared or approved by the U.S. Food and Drug Administration. The FDA has determined that such clearance or approval is not necessary. This test is used for clinical purposes. It should not be regarded as investigational or for research. . 01 Electronically signed: . Brisa Soler MD, Pathologist NPI- [id number] . 01 Gross description: . Received in a container of formalin, labeled right testicle and cord, is a 159 g, 9.0 x 7.0 x 5.0 cm enlarged testicle. It has an attached 10.0 x 2.0 x 1.0 cm spermatic cord. Attached at a proximal spermatic cord is a 6.0 x 4.0 x 2.5 cm apparent lipoma. The spermatic cord margin of resection is inked blue. The remaining spermatic cord and tunica vaginalis are inked orange. The spermatic cord is serially cross-sectioned and has unremarkable cut surfaces. The tunica vaginalis is focally adherent to the underlying whitney-white, smooth, glistening tunica albuginea. The overlying epididymis is unremarkable. The testicle is sectioned. The cut surfaces consist of a 6.5 x 6.0 x 4.2 cm, whitney-pink, edematous, fleshy cystic mass. No normal testicular parenchyma is identified. The mass appears to be confined by the overlying tunica albuginea. The mass does not invade into the epididymis grossly. The apparent lipoma attached to the proximal end of the spermatic cord is serially cross-sectioned and has yellow, lobulated, fatty cut surfaces without hemorrhage, necrosis, or fibrosis. Cer[employer] sections are submitted as follows: A1: En face spermatic cord margin of resection. A2: Cross-sections of mid spermatic cord. A3-A7: Random sections of testicular tumor. A8: Random section of apparent lipoma. ([id number]) Additional sections submitted as follows: A9: Possible lesion to epididymis. A10: Possible lesion to rete testis. ([id number]) /FRR 07/25/2021 1442 Local . 01 Pathologist provided ICD-10: C62.11 . 01 CPT . 894176, F89282, H26521 Specimen Comment: A courtesy copy of this report has been sent to [phone] Performed at: 01 [facility] [address] [place] [address], [place], [place] [id number] MD Kirby Garber MD Phone: [phone]
[2021-07-21] MEDS: LACTATED RINGERS 1,000 ML 84 ML IV ×2 (07:15→09:03)
[2021-07-21] MEDS: ACETAMINOPHEN IV 1,000 MG/100 ML VIAL 400 MG IV (07:16)
--- NOTE | 2021-07-21 07:35 | PM.PREOP ---
Pre-operative Note COVID-19 Criteria for continued procedure: Expected advancement of disease process, Possibility delay results in more complex future surgery or treatment, Deterioration of the patient's condition or overall health, Delay expected to result in less-positive ultimate med/surg outcome and Non-surgical alternatives not available or appropriate per current SOC Interval Note History & Physical reviewed/Exam performed by Physician: Yes Changes to H&P: No
[2021-07-21] MEDS: CEFAZOLIN 2 GM/20 ML SYRINGE IV (08:00)
--- NOTE | 2021-07-21 08:44 | SUR.OPER ---
Supine on padded OR bed, head on pillow, arms secured on padded arm boards at <90 degrees abduction, legs uncrossed, safety belt at thigh, tape over blanket over lower legs.
[2021-07-21] MEDS: BUPIVACAINE 0.5% W/ EPI (PF) 30 ML VIAL INJ (09:10)
[2021-07-21] MEDS: BUPIVACAINE LIPOSOME 266 MG/20 ML VIAL INJ (09:11)
--- NOTE | 2021-07-21 09:27 | PM.OP.1 ---
Operative Date/Time/Diagnoses Date of procedure: 07/21/21 Time of procedure: 09:27 Pre-op diagnosis: Right testicular neoplasm Post-op diagnosis: other (Also direct inguinal hernia) Procedure & Clinicians Procedure: 1. Right radical orchiectomy. 2. Right direct inguinal hernia repair with mesh (2 x 4 in Bard flat). Same procedure as scheduled: No (Incidental direct right inguinal hernia identified following mobilization) Indications: 1. Right testicular neoplasm Surgeon: Ramez Grigsby Yes if Unassisted: Yes Anesthesia Type: General and Local (0.5% Marcaine and 1.33% Exparel) Operative Notes Findings: 1. Normal tissue planes overlying the right inguinal canal. 2. Direct inguinal hernia determine following mobilization of the right cord and removal of cord and right testis. 3. Intraoperative decision made to reinforce the inguinal floor with a 2 in x 4 in flat mesh. Closure Type: primary Specimen(s): other (Right testicle and cord.) Estimated Blood Loss (mL): 5 Blood products transfused: none Procedure in detail: The patient was positioned supine was administered general anesthesia. The lower abdomen, genitalia, and groin were then prepped and draped in sterile fashion. Solution of 0.5% Marcaine was used to infiltrate the skin and subcutaneous tissue over right inguinal canal. An oblique incision was then made through the skin and the subcutaneous fat, and Ayaka's fascia were divided with blunt cautery technique Don the level of the external oblique fascia. External oblique fascia was then incised longitudinally parallel to its fibers from external to internal ring. The ileal inguinal nerve was identified running superiorly just beneath the external oblique fascia superiorly. It was observed and preserved throughout the procedure. Next, the cord was mobilized from its confines within the inguinal canal using combination of cautery and blunt technique. The cord was then divided into 2 bundles at the level of the internal ring and free tie of 0 Tycron was placed around each bundle. A suture ligature of 0 silk was also applied each bundle. Distally the cord was ligated with a free 0 Tycron. The cord was then divided. Proximally the bundles were infiltrated with 1.33% Exparel. External oblique fascia lateral to the internal ring was also infiltrated with 1.33% Exparel. Finally, the skin let was infiltrated with the same anesthetic. A total 20 cc were used. Next, the right testicle was mobilized from within the right hemiscrotum and brought into the surgical incision and with division of the gubernacular with cautery and blunt technique the right testis and cord were then handed off the field to be to submitted to pathology for routine gross and microscopic examination. Hemostasis was excellent. Examination of the operative field and wound identified a very lax inguinal floor with presence of preperitoneal fat inferiorly separation of the transfer say less away from Poupart's ligament. A 2 in x 4 in segment of Bard mesh was then requested, trimmed appropriately, and was positioned satisfactorily within the inguinal for. It was secured in place with interrupted 2-0 Prolene. Next, external oblique fascia was reapproximated with running 2-0 PDS. Ayaka's fascia was reapproximated using the same technique an suture. Finally, the skin was reapproximated using a running subcuticular 4-0 Monocryl. Skin surface was then cleaned and dried. A thin strip of Telfa was fashion and applied over the incision line over this a medium transparent Op site dressing was applied bio occlusively. Dry sterile fluffs were then applied to the right hemiscrotum and the patient was fitted with I athletic supporter. He was then awakened, transferred to a gurney, and transported to PACU in stable condition. Complications: none Post-operative Condition: stable Disposition: PACU Plan for aftercare: Discharge home.
== END 2021-07-21 10:57 | disposition home or self-care (01) ==
PROVIDERS: Family Provider Physician Assistant; PCP Family Medicine; Referring Provider Specialist; Visit Provider Specialist
PROC: (CPT 49505; principal; 2021-07-21 07:45)
DX: C62.11 Malignant neoplasm of descended right testis (principal); K40.90 Unilateral inguinal hernia, without obstruction or gangrene, not specified as recurrent; I10 Essential (primary) hypertension; D17.6 Benign lipomatous neoplasm of spermatic cord
CPT/HCPCS: 49505; 54522; C9290; J0131; J0690; J1100; J1170; J2405; J2704; J3010

== ENCOUNTER → 2021-08-14 16:59 | Outpatient (CLI) | payer OTHER, SELFPAY ==
--- NOTE | 2021-08-14 17:00 | DI.US.S_ITS ---
PROCEDURE: US SCROTUM INDICATIONS: post-op check. right radical orchiectomy. r inguinal hernia TECHNIQUE: Real-time scanning was performed of the scrotum and testicles, with image documentation. Color and pulse Doppler interrogation was performed of both testicles. COMPARISON: [facility], , US SCROTUM, 06/29/2021, 14:51. FINDINGS: Right: Right testicle is surgically absent. There is a 1.6 x 1.4 x 1.6 centimeter complex lesion in the right scrotal wall which may represent postsurgical hematoma however infected fluid collection cannot be differentiated by imaging alone. Left: Testicle is normal in size at 2.8 x 1.3 x 2.0 cm, and homogeneous in echotexture. Epididymis is normal in overall size and morphology. Small epididymal cysts are stable. No hydrocele or varicoceles. Overlying scrotal skin is normal in thickness. Doppler: Color and pulse Doppler demonstrate normal and symmetric arterial flow in both testicles. IMPRESSION: 1. Status post right orchectomy. 2. 1.6 x 1.4 x 1.6 centimeter complex right scrotal wall lesion which likely represents postsurgical hematoma. Recommend follow-up ultrasound in 1 month to ensure resolution of the finding. Dictated by: Lala Sevilla MD, PhD on 08/15/2021 at 12:41 Approved by: Lala Sevilla MD, PhD on 08/15/2021 at 12:59
== END ==
PROVIDERS: Family Provider Physician Assistant; PCP Family Medicine; Referring Provider Specialist; Visit Provider Specialist
DX: D40.11 Neoplasm of uncertain behavior of right testis (principal); N50.89 Other specified disorders of the male genital organs; Z90.79 Acquired absence of other genital organ(s)
CPT/HCPCS: 76870

== ENCOUNTER → 2021-09-07 12:36 | Outpatient (CLI) | payer OTHER, SELFPAY ==
--- NOTE | 2021-09-07 12:37 | DI.CT.S_ITS ---
PROCEDURE: CT CHEST ABD PEL W CON INDICATIONS: testicular cancer monitoring TECHNIQUE: After the administration of oral and intravenous contrast, axial sections acquired from the supraclavicular neck to the pubic symphysis. Coronal and sagittal reformats were performed. For radiation dose reduction, the following was used: automated exposure control, adjustment of mA and/or kV according to patient size. COMPARISON: CT 07/19/2021 FINDINGS: Image quality: Excellent. CHEST: Lower Neck: No enlarged lymph nodes. Thyroid: Within normal limits Axillae: No enlarged lymph nodes. Chest Wall: Unremarkable. Lungs and Airways: Small nodules are present, marked on series 6, including a cluster of nodules in the right upper lobe (MIP series image 68) Pleura: No pneumothorax or pleural effusions. Heart: Heart size is normal. No pericardial effusion. Thoracic Vessels: The aorta and pulmonary arteries demonstrate normal size. Mediastinum and Raiza: No enlarged lymph nodes. Esophagus: Patulous esophagus with oral contrast and small hiatal hernia. ABDOMEN: Liver: Stable hepatic cysts. Subcentimeter lesions are too small to characterize Gallbladder: Unremarkable Biliary ducts: Unremarkable. Pancreas: Unremarkable. Spleen: Unremarkable. Adrenal Glands: Unremarkable. Kidneys and Ureters: Unremarkable. Stomach and Bowel: Colonic diverticula. Peritoneum: No abnormal intraperitoneal fluid. No free air. Ventral Wall: Small fat containing umbilical hernia. Abdominal Nodes: Stable index aortocaval node measuring 5-6 mm in short axis on axial image 69. Vessels: Mild aortoiliac atherosclerotic calcifications. PELVIS: Pelvic Organs: Prostate calcifications. Bladder: Unremarkable. Pelvic Nodes: No enlarged lymph nodes by size criteria. Miscellaneous: Right orchiectomy. Postsurgical changes. Dystrophic calcification in the right anterior thigh. Bones: No suspicious osseous lesion. Long segment sclerotic appearance of the left 8th rib. This was seen previously. IMPRESSION: Testicular cancer monitoring CT. No lymphadenopathy. Stable prominent aortocaval node as described above. Indeterminate sclerosis of the left 8th rib, tiny lung nodules, and subcentimeter hepatic too small to characterize hypoattenuating lesions. These can be followed on subsequent CT in 3-6 months. The rib lesion can also be assessed on bone scan. Suspected reflux esophagitis. Dictated by: Spike Davis M.D. on 09/07/2021 at 15:09 Approved by: Spike Davis M.D. on 09/07/2021 at 15:24
[2021-09-07 14:35] LABS: Alanine Aminotransferase 33 IU/L (<50); Albumin 4.3 g/dL (3.5-5.0); Albumin Globulin Ratio 1.9 (1.0-2.8); Alkaline Phosphatase 100 U/L (38-126); Aspartate Aminotransferase 35 IU/L (17-59); BUN Creatinine Ratio 27.3 (6-22); Bilirubin Total 0.7 mg/dL (0.2-1.3); Blood Urea Nitrogen 21 mg/dL (9-20); Carbon Dioxide 28 mmol/L (22-32); Chloride 106 mmol/L (98-107); Estimated Glomerular Filt Rate > 60 mL/min (>60); Globulin 2.3 g/dL (1.7-4.1); Glucose 105 mg/dL (80-110); HEMOLYSIS < 15 (0-50); Lactate Dehydrogenase 501 U/L (313-618); Potassium 4.2 mmol/L (3.4-5.1); Sodium 139 mmol/L (137-145); Total Protein 6.6 g/dL (6.3-8.2)
== END ==
PROVIDERS: Family Provider Physician Assistant; PCP Family Medicine; Referring Provider Internal Medicine Medical Oncology; Visit Provider Internal Medicine Medical Oncology
DX: C62.91 Malignant neoplasm of right testis, unspecified whether descended or undescended (principal); M89.9 Disorder of bone, unspecified
CPT/HCPCS: 36415; 71260; 74177; 80053; 83615

== ENCOUNTER → 2021-12-07 07:24 | Outpatient (CLI) | payer OTHER, SELFPAY ==
[2021-12-07 08:50] LABS: Add Manual Diff / Slide Review NO; Basophils Absolute Auto 0 /uL (0-100); Basophils Percent Auto 0.8 % (0-2); Eosinophils Absolute Auto 0 /uL (0-450); Hematocrit 36.3 % (41-53); Lymphocytes Absolute Auto 1100 /uL (1100-4500); Lymphocytes Percent Auto 28.1 % (25-40); Mean Corpuscular HGB Conc 33.1 % (30-36); Mean Corpuscular Hemoglobin 28.3 PG (26-34); Mean Corpuscular Volume 85.6 fL (80-100); Monocytes Absolute Auto 600 /uL (0-900); Monocytes Percent Auto 15.5 % (3-14); Neutrophils Absolute Auto 2100 /uL (1500-7000); Neutrophils Percent Auto 54.6 % (50-75); Platelet Count 186 X10^3/uL (150-400); Red Blood Cell Count 4.24 X10^6/uL (4.5-5.9); White Blood Cell Count 3.9 X10^3/uL (4.5-11.0)
[2021-12-07 09:37] LABS: Thyroid Stimulating Hormone 2.45 uIU/mL (0.47-4.68)
[2021-12-07 09:43] LABS: Cortisol Random 21.5 ug/dL
== END ==
PROVIDERS: Family Provider Physician Assistant; PCP Family Medicine; Referring Provider Family Medicine; Visit Provider Family Medicine
DX: D40.11 Neoplasm of uncertain behavior of right testis (principal); R61 Generalized hyperhidrosis
CPT/HCPCS: 36415; 82533; 84443; 85025

== ENCOUNTER → 2021-12-14 11:12 | Outpatient (CLI) | payer OTHER, SELFPAY ==
[2021-12-14 14:06] LABS: TSH w/ Reflex to FT4 2.71 uIU/mL (0.47-4.68)
[2021-12-21 04:48] LABS: Percent Free Testosterone 1.73 % (1.50-4.20); Testosterone Free 0.87 ng/dL (5.00-21.00); Testosterone Total 50.3 ng/dL (264.0-916.0)
== END ==
PROVIDERS: Family Provider Physician Assistant; PCP Family Medicine; Referring Provider Family Medicine; Visit Provider Family Medicine
DX: R53.83 Other fatigue (principal); R23.2 Flushing
CPT/HCPCS: 36415; 84402; 84403; 84443

== ENCOUNTER → 2022-02-07 10:00 | Outpatient (CLI) | payer OTHER, SELFPAY ==
--- NOTE | 2022-02-07 10:01 | DI.CT.S_ITS ---
PROCEDURE: CT CHEST ABD PEL W CON INDICATIONS: testicular cancer surveillance TECHNIQUE: After the administration of oral and intravenous contrast, axial sections acquired from the supraclavicular neck to the pubic symphysis. Coronal and sagittal reformats were performed. For radiation dose reduction, the following was used: automated exposure control, adjustment of mA and/or kV according to patient size. COMPARISON: [facility], CR, XR THORACIC SPINE 3V, 03/03/2019, 12:14. CR, CHEST 1 VIEW, 12/08/2016, 20:49. [facility], CT, CT ABDOMEN PELVIS WO/W CON, 07/19/2021, 15:07. [facility], CT, CT CHEST ABD PEL W CON, 09/07/2021, 14:05. FINDINGS: Image quality: Excellent. CHEST: Lower Neck: No enlarged lymph nodes. Thyroid: Within normal limits. Axillae: No enlarged lymph nodes. Chest Wall: Unremarkable. Lungs and Airways: Bibasilar atelectasis. A few punctate pulmonary nodules and calcified granulomas which are similar. No mass. No consolidation. Central airways are clear. Pleura: No pneumothorax or pleural effusions. Heart: Heart size is normal. No pericardial effusion. Thoracic Vessels: The aorta and pulmonary arteries demonstrate normal size. Mediastinum and Raiza: No enlarged lymph nodes. Esophagus: Oral contrast in the midesophagus. Gastroesophageal reflux is suspected. ABDOMEN: Liver: No suspicious lesion. Multiple small hepatic cysts are unchanged. Gallbladder: Prominent size. No calcified gallstones. Biliary ducts: Unremarkable. Pancreas: Unremarkable. Spleen: Unremarkable. Adrenal Glands: Unremarkable. Kidneys and Ureters: No hydronephrosis. Stomach and Bowel: Stomach, small bowel loops, and colon are unremarkable. Prominent stool in the rectum. Peritoneum: No abnormal intraperitoneal fluid. No free air. Ventral Wall: No hernia. Abdominal Nodes: No retroperitoneal or mesenteric adenopathy by size criteria. Vessels: Aorta and inferior vena cava are normal in size. Moderate calcified plaque. PELVIS: Pelvic Organs: Unremarkable. Bladder: Unremarkable. Pelvic Nodes: No enlarged lymph nodes. Miscellaneous: Postoperative change at the right inguinal canal. Bones: Diffuse sclerosis of the left 8th rib, unchanged. No new lesion. Lumbar DDD. IMPRESSION: 1. No mass or significant pulmonary nodules. 2. No adenopathy. 3. Diffuse sclerosis at the left 8th rib, unchanged. This could represent metastatic disease such as prostate cancer. Nuclear medicine whole-body bone scan would be helpful for further evaluation. 4. Gastroesophageal reflux is suspected. Dictated by: Brandon Suárez M.D. on 02/07/2022 at 12:57 Approved by: Brandon Suárez M.D. on 02/07/2022 at 13:12
== END ==
PROVIDERS: Family Provider Physician Assistant; PCP Family Medicine; Referring Provider Internal Medicine Medical Oncology; Visit Provider Internal Medicine Medical Oncology
DX: C62.91 Malignant neoplasm of right testis, unspecified whether descended or undescended (principal); R91.8 Other nonspecific abnormal finding of lung field; K76.89 Other specified diseases of liver; M51.36 Other intervertebral disc degeneration, lumbar region; M89.9 Disorder of bone, unspecified
CPT/HCPCS: 71260; 74177; Q9967

== ENCOUNTER → 2022-08-07 09:04 | Outpatient (CLI) | payer OTHER, SELFPAY ==
--- NOTE | 2022-08-07 10:36 | DI.CT.S_ITS ---
PROCEDURE: CT CHEST ABD PEL W CON INDICATIONS: testicular cancer surveillance TECHNIQUE: After the administration of oral and intravenous contrast, axial sections acquired from the supraclavicular neck to the pubic symphysis. Coronal and sagittal reformats were performed. For radiation dose reduction, the following was used: automated exposure control, adjustment of mA and/or kV according to patient size. COMPARISON: [facility], CT, CT CHEST ABD PEL W CON, 02/07/2022, 11:42. FINDINGS: Image quality: Good Lungs and pleura: No dense airspace disease. No new or enlarging pulmonary nodules. Scattered scarring and atelectasis, particularly in the lingula and right middle lobe. Tiny pulmonary nodules are present, stable. Mediastinum, heart, and esophagus: Calcifications seen in the left pericardium, stable. No hiatal hernia. Heart size is normal. No pathologic adenopathy by size criteria. Chest wall and thyroid: Unremarkable Solid organs: Scattered liver cysts. Subcentimeter lesions are too small to characterize, probably also cysts. These are unchanged. Gallbladder is mildly distended, otherwise unremarkable. No pathologic dilation of the biliary tree or pancreatic duct. Small hyperdensity at the pancreatic tail is similar to prior, possibly vascular calcification. No splenomegaly. No adrenal nodules. No hydronephrosis. Vessels and lymph nodes: No portal venous thrombus. No pathologic adenopathy by size criteria. There is stable nodularity in the left external iliac vessels (2/108), adjacent to scar tissue, measuring about 1 cm. A prominent aortocaval lymph node on axial image /72 is stable. Bowel and peritoneum: No evidence of small bowel obstruction. No pathologic ascites or drainable abscess. Rectal wall thickening is nonspecific, also seen to some extent on previous imaging. Please consider age-appropriate colonoscopy correlation. There also colonic diverticula. Body wall: Tiny fat containing umbilical hernia. Right orchiectomy. Pelvis: Bladder is unremarkable. Prostate has calcifications and heterogeneous, not well evaluated on CT. Bones: Degenerative changes. Lower lumbar postsurgical changes. No new suspicious osseous finding. Stable sclerotic appearance of the lateral left 8th rib. IMPRESSION: Overall stable CT compared to January of 2022. Stable sclerotic appearance of the left 8th rib. Stable nodularity adjacent to the left external iliac vessels (2/108) Other findings as above. Dictated by: Spike Davis M.D. on 08/07/2022 at 13:14 Approved by: Spike Davis M.D. on 08/07/2022 at 13:25
== END ==
PROVIDERS: Family Provider Physician Assistant; PCP Family Medicine; Referring Provider Internal Medicine Medical Oncology; Visit Provider Internal Medicine Medical Oncology
DX: C62.91 Malignant neoplasm of right testis, unspecified whether descended or undescended (principal); K76.89 Other specified diseases of liver; K57.90 Diverticulosis of intestine, part unspecified, without perforation or abscess without bleeding
CPT/HCPCS: 71260; 74177; Q9967

== ENCOUNTER → 2022-09-20 06:59 | Outpatient (CLI) | payer OTHER, SELFPAY ==
[2022-09-20 07:46] LABS: Add Manual Diff / Slide Review NO; Basophils Absolute Auto 0 /uL (0-100); Basophils Percent Auto 0.8 % (0-2); Eosinophils Absolute Auto 0 /uL (0-450); Eosinophils Percent Auto 0.8 % (2-4); Hematocrit 35.5 % (41-53); Hemoglobin 12.1 g/dL (13.5-17.5); Lymphocytes Absolute Auto 1100 /uL (1100-4500); Lymphocytes Percent Auto 27.9 % (25-40); Mean Corpuscular HGB Conc 34.1 % (30-36); Mean Corpuscular Hemoglobin 28.8 PG (26-34); Mean Corpuscular Volume 84.4 fL (80-100); Monocytes Absolute Auto 700 /uL (0-900); Neutrophils Absolute Auto 2100 /uL (1500-7000); Neutrophils Percent Auto 52.5 % (50-75); Platelet Count 161 X10^3/uL (150-400); Red Blood Cell Count 4.21 X10^6/uL (4.5-5.9); Red Cell Distribution Width 17.4 % (11.6-14.8)
[2022-09-20 08:28] LABS: Prostate Specific Antigen 0.065 ng/mL (0.10-4.00)
[2022-09-26 06:56] LABS: Percent Free Testosterone 1.36 % (1.50-4.20); Testosterone Free 0.43 ng/dL (5.00-21.00); Testosterone Total 31.9 ng/dL (264.0-916.0)
== END ==
PROVIDERS: Family Provider Physician Assistant; PCP Family Medicine; Referring Provider Student in an Organized Health Care Education/Training Program; Visit Provider Student in an Organized Health Care Education/Training Program
DX: Z90.79 Acquired absence of other genital organ(s) (principal)
CPT/HCPCS: 36415; 84153; 84402; 84403; 85025

== ENCOUNTER → 2023-06-04 07:02 | Outpatient (CLI) | payer OTHER, SELFPAY ==
[2023-06-04 07:58] LABS: Add Manual Diff / Slide Review NO; Basophils Absolute Auto 0 /uL (0-100); Eosinophils Absolute Auto 200 /uL (0-450); Eosinophils Percent Auto 6.3 % (2-4); Hematocrit 39.1 % (41-53); Lymphocytes Absolute Auto 1100 /uL (1100-4500); Lymphocytes Percent Auto 33.1 % (25-40); Mean Corpuscular HGB Conc 33.3 % (30-36); Mean Corpuscular Hemoglobin 28.1 PG (26-34); Mean Corpuscular Volume 84.5 fL (80-100); Monocytes Absolute Auto 600 /uL (0-900); Neutrophils Absolute Auto 1400 /uL (1500-7000); Neutrophils Percent Auto 41.6 % (50-75); Platelet Count 148 X10^3/uL (150-400); Red Blood Cell Count 4.63 X10^6/uL (4.5-5.9); Red Cell Distribution Width 18.9 % (11.6-14.8); White Blood Cell Count 3.4 X10^3/uL (4.5-11.0)
[2023-06-04 08:21] LABS: HEMOLYSIS < 15 (0-50); Iron 120 ug/dL (49-181)
[2023-06-04 08:23] LABS: Alanine Aminotransferase 22 IU/L (<50); Albumin 4.3 g/dL (3.5-5.0); Alkaline Phosphatase 88 U/L (38-126); Aspartate Aminotransferase 27 IU/L (17-59); BUN Creatinine Ratio 22.2 (6-22); Bilirubin Total 0.8 mg/dL (0.2-1.3); Blood Urea Nitrogen 16 mg/dL (9-20); Calcium 9.7 mg/dL (8.4-10.2); Carbon Dioxide 27 mmol/L (22-32); Chloride 107 mmol/L (98-107); Cholesterol 95 mg/dL (140-199); Estimated Glomerular Filt Rate > 60 mL/min (>60); Globulin 2.1 g/dL (1.7-4.1); Glucose 109 mg/dL (80-110); HDL Cholesterol 48 mg/dL (40-60); HEMOLYSIS < 15 (0-50); LDL Cholesterol Calculated 34 mg/dL (<100); Potassium 4.1 mmol/L (3.4-5.1); Sodium 137 mmol/L (137-145); Total Protein 6.4 g/dL (6.3-8.2); Triglycerides 67 mg/dL (35-150)
[2023-06-04 08:32] LABS: Percent Iron Saturation 37 % (20-50); Total Iron Binding Capacity 328 ug/dL (261-462); Transferrin 245 mg/dL (206-381)
[2023-06-04 09:06] LABS: Vitamin B12 872 pg/mL (239-931)
== END ==
LOC: LAB 07:02
PROVIDERS: Family Provider Physician Assistant; PCP Family Medicine; Referring Provider Family Medicine; Visit Provider Family Medicine
DX: R79.89 Other specified abnormal findings of blood chemistry (principal); K21.9 Gastro-esophageal reflux disease without esophagitis; E78.5 Hyperlipidemia, unspecified; I10 Essential (primary) hypertension; C92.91 Myeloid leukemia, unspecified in remission
CPT/HCPCS: 36415; 80053; 80061; 82607; 83540; 83550; 85025

== ENCOUNTER 2024-07-23 14:17 | Observation (INO) | payer MEDICARE, SELFPAY ==
[2024-07-23] VITALS (7 sets, daily range): BP systolic 125–186; BP diastolic 57–79; PULSE 66–75; RESP 15–18; TEMP 36.4–36.7; O2SAT 97–100; BMI 23.6
--- NOTE | 2024-07-23 14:21 | DI.CT.S_ITS ---
PROCEDURE: CT ANGIO HEAD AND NECK INDICATIONS: Please evaluate for stroke TECHNIQUE: After the administration of intravenous contrast, 1 mm thick sections acquired from the aortic arch through the [place]. 3-dimensional elsdqzy-sgbhfjxnm-wtlskvwjnq (MIP) and/or volume rendering reformats were acquired of the central intracranial vasculature and neck separately. For radiation dose reduction, the following was used: automated exposure control, adjustment of mA and/or kV according to patient size. COMPARISON: [facility], CR, XR CHEST 1V, 07/23/2024, 14:31. [facility], CT, CT STROKE, 07/23/2024, 14:31. [facility], CT, HEAD WITHOUT CONTRAST, 12/08/2016, 20:59. [facility], MR, STROKE PROTOCOL, 12/03/2016, 18:25. FINDINGS: Image quality: Limited by bolus timing, with venous contamination. There is streak artifact seen through the level of the shoulders. There is artifact associated with the metallic hardware. Artifact from the metallic hardware is reduced by metal reconstruction algorithm. Cerebral CT Angiogram: Internal carotid arteries: No acute findings. Intracranial ICA are patent with no significant stenosis. No occlusion. No aneurysm. Anterior cerebral arteries: There is an accessory branch of the anterior cerebral artery system that emanates from the anterior communicating artery itself. No significant stenosis. No occlusion. No aneurysm. Middle cerebral arteries: Unremarkable. The previously described a middle cerebral artery narrowings are no longer seen. No significant stenosis. No occlusion. No aneurysm. Posterior cerebral arteries: There is a type origin of the right posterior cerebral artery. The posterior cerebral arteries are otherwise within normal limits. No significant stenosis. No occlusion. No aneurysm. Basilar artery: Unremarkable. No significant stenosis. No occlusion. No aneurysm. Vertebral arteries: The right V4 segment largely terminates in the right posterior inferior cerebellar artery, which is a stable finding. The left V4 segment is within normal limits. Dural venous sinuses: Unremarkable given phase of enhancement. Other: Arterial phase appearance of the brain parenchyma is unremarkable. Neck CT Angiogram: Internal carotid arteries: Unremarkable. No significant stenosis. No dissection or occlusion. Common carotid arteries: Unremarkable. No significant stenosis. No dissection or occlusion. External carotid arteries: Unremarkable. No occlusion. Vertebral arteries: The left vertebral artery is dominant to the right. No significant stenosis. No dissection or occlusion. Aortic Arch and Mediastinum: Partially visualized aortic arch unremarkable without evidence of aneurysm. Origins of the great vessels unremarkable. Other: Arterial phase soft tissues of the neck and chest are unremarkable. Moderate cervical spine degenerative change can be seen. IMPRESSION: No significant intracranial arterial abnormality is seen. No significant abnormality is seen within the arteries of the neck. If there is strong clinical suspicion for an acute stroke, please consider a brain MRI for further evaluation, as it is more sensitive (assuming that there is no contraindication to MRI). Additional findings: [id number] developmental anomalies. Moderate cervical spine degenerative change Any quantitative measurements of stenosis were performed using NASCET criteria. Dictated by: Carter Davila M.D. on 07/23/2024 at 14:30 Approved by: Carter Davila M.D. on 07/23/2024 at 14:35
--- NOTE | 2024-07-23 14:21 | DI.CT.S_ITS ---
PROCEDURE: CT STROKE INDICATIONS: Positive BE-FAST, Stroke symptoms TECHNIQUE: Noncontrast 4.5 mm thick angled axial sections acquired from the foramen magnum to the vertex, with coronal reformats. For radiation dose reduction, the following was used: automated exposure control, adjustment of mA and/or kV according to patient size. COMPARISON: [facility], , XR CHEST 1V, 07/23/2024, 14:31. (Additional prior imaging is not available for review from the archive at the time of this dictation.) FINDINGS: Image quality: Diagnostic. CSF spaces: Basal cisterns are patent. No extra-axial fluid collections. The ventricles are symmetric in size and shape. Brain: No intracranial bleeds or mass effect. There is cerebral volume loss, with resultant ventricular and sulcal prominence. There are periventricular and deep white matter chronic small vessel ischemic changes. There is intracranial internal carotid artery atherosclerosis. Skull and face: Calvarium and visualized facial bones appear intact, without suspicious lesions. Sinuses: Visualized sinuses and mastoids are clear. IMPRESSION: No acute intracranial pathology. No acute intracranial hemorrhage is seen. Note: Case discussed by telephone with Dr. De Leon at 2:45 p.m. Cherry time on July 23, 2024. This study fulfills neurological imaging criteria for inclusion or exclusion of acute stroke therapies based on available published neurological guidelines. Dictated by: Carter Davila M.D. on 07/23/2024 at 13:44 Approved by: Carter Davila M.D. on 07/23/2024 at 13:46
--- NOTE | 2024-07-23 14:21 | DI.RAD.S_ITS ---
PROCEDURE: XR CHEST 1V INDICATIONS: Possible stroke TECHNIQUE: One view of the chest was acquired. COMPARISON: [facility], CT, CT CHEST ABDOMEN PELVIS WITH CONTRAST, 03/31/2024, 9:33. [facility], CT, CT STROKE, 07/23/2024, 14:31. [facility], CT, CT ANGIO HEAD AND NECK, 07/23/2024, 14:31. [facility], CR, XR CHEST 1V, 06/05/2021, 14:06. FINDINGS: Surgical changes and devices: None. Lungs and pleura: An incomplete inspiratory result is noted, causing a crowded appearance to the lung markings. No focal infiltrates are seen. No pneumothorax or significant pleural effusions are seen. Mediastinum: Mediastinal contours appear normal. Heart size is normal. Bones and chest wall: No suspicious bony lesions. Overlying soft tissues appear unremarkable. IMPRESSION: Limited portable chest examination, without a significant cardiopulmonary abnormality identified. Dictated by: Carter Davila M.D. on 07/23/2024 at 14:35 Approved by: Carter Davila M.D. on 07/23/2024 at 14:36
--- NOTE | 2024-07-23 14:27 | ED_ITS ---
HPI - Neuro Symptoms/Deficit General Chief Complaint: Neuro Symptoms/Deficit Stated Complaint: possible Stroke Time Seen by Provider: 07/23/24 14:27 History of Present Illness HPI Narrative: [place] for sudden onset 1 hour ago 1:20 p.m. slurred speech left facial droop and syncope. Patient has history of TIAs in the past. Is on cholesterol medication and Plavix. Denies any chest pain back pain or headache. Patient behaving at baseline at this time. Fast exam is negative. Patient in no distress at this time. Code stroke activated Related Data Home Medications ?Medication ?Instructions ?Recorded ?Confirmed calcium carbonate 500 mg PO PRN PRN Acid Reflu x 08/15/21 07/24/24 testosterone cypionate 200 mg/mL 200 mg IM Q7D PRN Low testosterone 01/28/23 07/24/24 intramuscular oil Previous Rx's ?Medication ?Instructions ?Recorded lorazepam 0.5 mg tablet 0.5 mg PO BID PRN anxiety #3 0 tabs 05/15/22 famotidine 20 mg tablet 20 mg PO DAILY #90 tabs 0903/12 amlodipine 2.5 mg tablet 2.5 mg PO DAILY #90 tabs clopidogrel 75 mg tablet 75 mg PO DAILY #90 tabs 01/19 08/11 clonidine HCl 0.1 mg tablet 0.1 mg PO BEDTIME #30 tabs 04/06/24 aspirin 81 mg tablet,delayed 81 mg PO DAILY #20 tabs 0 07/24/24 release atorvastatin 20 mg tablet 80 mg (4 x 20 mg) PO BEDTIME #30 07/24/24 tabs Allergies Allergy/AdvReac Type Severity Reaction Status Date / Time sildenafil (From VIAGRA) AdvReac Mild VISION Verified 06/29/24 11:02 CHANGES Review of Systems Review of Systems Narrative: GENERAL: Negative chills, fatigue, malaise, fever, sweats. HEENT: Negative sinus pain, ear pain, sore throat RESPIRATORY: Negative dyspnea, cough CARDIOVASCULAR: Negative chest pain, palpitations GASTROINTESTINAL: Negative vomiting, nausea, abdominal pain : Negative dysuria, frequency, hematuria MUSCULOSKELETAL: Negative muscle or bony pain SKIN: Negative rash, skin lesions NEUROLOGIC: Negative weakness, numbness, positive slurred speech positive syncope positive facial droop ROS Unobtainable: All systems reviewed & are unremarkable except as noted in HPI and below Patient History Medical History Right inguinal pain Osteoarthritis Low testosterone in male GERD (gastroesophageal reflux disease) Well adult exam Hot flashes Hearing loss Seminoma of right testis, 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 Social History marital status: number of children: 1 household members: spouse Smoking Status: Never smoker second hand exposure: No alcohol intake: current substance use type: does not use caffeine: Yes Type(s) of exercise: walking alcohol intake frequency: 0-2 drinks per day Exam Narrative Exam Narrative: GENERAL: in no distress, not toxic not dyspneic HEAD: Normocephalic. EYES: Pupils equal round ENT: Mucous membranes moist. NECK: Trachea midline. CARDIOVASCULAR: Regular rate and rhythm RESPIRATORY: Clear to auscultation. Breath sounds equal bilaterally. No wheezes, rales, or rhonchi. GASTROINTESTINAL: Abdomen soft, non-tender EXTREMITIES: No gross deformities. BACK: No flank tenderness. NEURO: AOx4. 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 Dbyjyk-cv-fzgu intact SKIN: Warm and dry PSYCH: Not anxious, is cooperative Initial Vital Signs Initial Vital Signs: Vital Signs Temperature 98 F 07/23/24 14:25 Pulse Rate 74 07/23/24 14:25 Respiratory Rate 16 07/23/24 14:25 Blood Pressure 186/79 H 07/23/24 14:25 Pulse Oximetry 100 07/23/24 14:25 Oxygen Delivery Method Room Air 07/23/24 14:25 Scores NIH Stroke Scale Level of Conciousness: Alert, keenly responsive Ask month/age: Answers both questions correctly. Open/close eyes, close hand: Performs both tasks correctly Best gaze horizontal: Normal Visual yang: No visual loss Facial palsy: Normal symetrical movement Left arm drift: No drift for full 10 sec Right arm drift: No drift for full 10 sec Left leg drift: No drift for full 5 sec Right leg drift: No drift for full 5 sec Limb ataxia: Absent Sensory on face/arms/legs: Normal, no sensory loss Best language: No aphasia, normal Dysarthria: Normal Extinction or inattention: No abnormality Total NIH Stroke scale score: 0 Course Orders Ordered: Discontinued Medications Acetaminophen (Acetaminophen 325 Mg Tablet) 650 mg PO Q6H PRN PRN Reason: Fever/Mild Pain (1-3) Aspirin (Aspirin Ec 81 Mg Tablet) 81 mg PO DAILY [facility] Last Admin: 07/24/24 08:49 Dose: 81 mg Documented By: Admin: 07/23/24 19:00 Dose: 81 mg Documented By: RADHA Atorvastatin Calcium (Atorvastatin 20 Mg Tablet) 80 mg PO BEDTIME [facility] Last Admin: 07/23/24 21:30 Dose: 80 mg Documented By: Clopidogrel Bisulfate (Clopidogrel 75 Mg Tablet) 75 mg PO DAILY [facility] Last Admin: 07/24/24 08:49 Dose: 75 mg Documented By: RADHA Heparin Sodium (Porcine) (Heparin 5,000 Unit/Ml Vial) 5,000 unit SUBCUT BID [facility] Last Admin: 07/24/24 08:47 Dose: 5,000 unit Documented By: Admin: 07/23/24 21:30 Dose: 5,000 unit Documented By: Naloxone HCl (Naloxone 0.4 Mg/Ml Vial) 0.2 mg IV Q2MIN PRN PRN Reason: Opiate Reversal Ondansetron HCl (Ondansetron 4 Mg/2 Ml Inj) 4 mg IV NOW PRN PRN Reason: Nausea And Vomiting Ondansetron HCl (Ondansetron 4 Mg Odt) 4 mg PO NOW PRN PRN Reason: Nausea And Vomiting Vital Signs Vital signs: Vital Signs - 8 hr 07/23/24 14:25 07/23/24 15:46 Temperature 98 F Pulse Rate 74 71 Respiratory Rate 16 16 Blood Pressure 186/79 H 140/64 Pulse Oximetry 100 98 Oxygen Delivery Method Room Air Room Air MDM - Neuro Symptoms/Deficit Lab Data 07/23/24 14:30 07/23/24 14:30 Labs: Lab Results 07/23/24 07/23/24 Range/Units 14:30 14:50 WBC 8.2 (4.5-11.0) X10^3/uL RBC 5.08 (4.5-5.9) X10^6/uL Hgb 14.3 (13.5-17.5) g/dL Hct 42.8 (41-53) % MCV 84.2 (80-100) fL MCH 28.2 (26-34) PG MCHC 33.5 (30-36) % RDW 19.3 H (11.6-14.8) % Plt Count 206 (150-400) X10^3/uL Neut % (Auto) Not Reportable Lymph % (Auto) Not Reportable [place] % (Auto) Not Reportable Eos % (Auto) Not Reportable Baso % (Auto) Not Reportable Lymph # (Auto) Not Reportable [place] # (Auto) Not Reportable Baso # (Auto) Not Reportable Total Counted 100 Seg Neutrophils % 80.0 H (38-70) % Lymphocytes % (Manual) 14.0 L (25-45) % Monocytes % (Manual) 6.0 (2-11) % Neutrophils # (Manual) 6560 H (3465-5755) /uL RBC Morphology See below Anisocytosis 2+ H Microcytosis 1+ H PT 11.9 (9.4-12.5) SECONDS INR 1.1 (0.9-1.3) APTT 36 (25.1-36.5) SECONDS Sodium 138 (137-145) mmol/L Potassium 3.4 (3.4-5.1) mmol/L Chloride 103 (98-107) mmol/L Carbon Dioxide 25 (22-32) mmol/L BUN 15 (9-20) mg/dL Creatinine 0.72 (0.66-1.25) mg/dL Estimated GFR > 60 (>60) mL/min BUN/Creatinine Ratio 20.8 (6-22) Glucose 163 H (70-99) mg/dL Calcium 9.2 (8.4-10.2) mg/dL Total Bilirubin 1.2 (0.2-1.3) mg/dL AST 28 (17-59) IU/L ALT 21 (<50) IU/L Alkaline Phosphatase 84 (38-126) U/L Total Creatine Kinase 47 L (55-170) U/L Troponin I < 0.012 (0.01-0.034) ng/mL Total Protein 7.0 (6.3-8.2) g/dL Albumin 4.7 (3.5-5.0) g/dL Globulin 2.3 (1.7-4.1) g/dL Albumin/Globulin Ratio 2.0 (1.0-2.8) U Opiates 300ng/mL cut Negative (Negative) Ur Oxycodone Screen Negative (Negative) Urine Methadone Screen Negative (Negative) Ur Barbiturates Screen Negative (Negative) U Tricyclic Antidepress Negative (Negative) Ur Phencyclidine Scrn Negative (Negative) Ur Amphetamines Screen Negative (Negative) U Methamphetamines Scrn Negative (Negative) Ur MDMA Scrn (Ecstasy) Negative (Negative) U Benzodiazepines Scrn Negative (Negative) Urine Cocaine Screen Negative (Negative) U Marijuana (THC) Screen Negative (Negative) Urine pH Normal (Normal) Urine Specific [place] Normal (Normal) Ur Creatinine Normal (Normal) Point of Care Testing Glucose POC 184 Urine Dip Bedside Urine Glucose 100 mg/dl Bedside Urine Bilirubin - Negative Bedside Urine Ketone - Negative Urine Specific [place] 1.015 Bedside Urine Occult Blood - Negative Bedside Urine pH 6.0 Bedside Urine Protein - Negative Bedside Urine Urobilinogen - Negative Bedside Urine Nitrite - Negative Bedside Urine Leukocytes - Negative Esterase Imaging Data CT scan - head: Radiologist's Impression: [place] [address] CT Scan Report Signed Patient: Dane Godinez MR#: [id number] : 1940 Acct:[id number] Age/Sex: 84 / M Date of Service: 07/23/24 Loc: ED Accession Number: [id number] Procedure: CT Stroke Ordering Provider: Jose De Leon MD PROCEDURE: CT STROKE INDICATIONS: Positive BE-FAST, Stroke symptoms TECHNIQUE: Noncontrast 4.5 mm thick angled axial sections acquired from the foramen magnum to the vertex, with coronal reformats. For radiation dose reduction, the following was used: automated exposure control, adjustment of mA and/or kV according to patient size. COMPARISON: [facility], CR, XR CHEST 1V, 07/23/2024, 14:31. (Additional prior imaging is not available for review from the archive at the time of this dictation.) FINDINGS: Image quality: Diagnostic. CSF spaces: Basal cisterns are patent. No extra-axial fluid collections. The ventricles are symmetric in size and shape. Brain: No intracranial bleeds or mass effect. There is cerebral volume loss, with resultant ventricular and sulcal prominence. There are periventricular and deep white matter chronic small vessel ischemic changes. There is intracranial internal carotid artery atherosclerosis. Skull and face: Calvarium and visualized facial bones appear intact, without suspicious lesions. Sinuses: Visualized sinuses and mastoids are clear. IMPRESSION: No acute intracranial pathology. No acute intracranial hemorrhage is seen. Note: Case discussed by telephone with Dr. De Leon at 2:45 p.m. [place] time on July 23, 2024. This study fulfills neurological imaging criteria for inclusion or exclusion of acute stroke therapies based on available published neurological guidelines. Dictated by: Carter Davila M.D. on 07/23/2024 at 13:44 Approved by: Carter Davila M.D. on 07/23/2024 at 13:46 CTA - brain/neck: Radiologist's Impression: [place] [address] CT Scan Report Signed Patient: Dane Godinez MR#: [id number] : 1940 Acct:[id number] Age/Sex: 84 / M Date of Service: 07/23/24 Loc: ED Accession Number: [id number] Procedure: CT angio head and neck Ordering Provider: Jose De Leon MD PROCEDURE: CT ANGIO HEAD AND NECK INDICATIONS: Please evaluate for stroke TECHNIQUE: After the administration of intravenous contrast, 1 mm thick sections acquired from the aortic arch through the [place] of [place]. 3-dimensional eqwpqex-hewtebxyu-bvqmxjsdyh (MIP) and/or volume rendering reformats were acquired of the central intracranial vasculature and neck separately. For radiation dose reduction, the following was used: automated exposure control, adjustment of mA and/or kV according to patient size. COMPARISON: [facility], CR, XR CHEST 1V, 07/23/2024, 14:31. [facility], CT, CT STROKE, 07/23/2024, 14:31. [facility], CT, HEAD WITHOUT CONTRAST, 12/08/2016, 20:59. [facility], MR, STROKE PROTOCOL, 12/03/2016, 18:25. FINDINGS: Image quality: Limited by bolus timing, with venous contamination. There is streak artifact seen through the level of the shoulders. There is artifact associated with the metallic hardware. Artifact from the metallic hardware is reduced by metal reconstruction algorithm. Cerebral CT Angiogram: Internal carotid arteries: No acute findings. Intracranial ICA are patent with no significant stenosis. No occlusion. No aneurysm. Anterior cerebral arteries: There is an accessory branch of the anterior cerebral artery system that emanates from the anterior communicating artery itself. No significant stenosis. No occlusion. No aneurysm. Middle cerebral arteries: Unremarkable. The previously described a middle cerebral artery narrowings are no longer seen. No significant stenosis. No occlusion. No aneurysm. Posterior cerebral arteries: There is a type origin of the right posterior cerebral artery. The posterior cerebral arteries are otherwise within normal limits. No significant stenosis. No occlusion. No aneurysm. Basilar artery: Unremarkable. No significant stenosis. No occlusion. No aneurysm. Vertebral arteries: The right V4 segment largely terminates in the right posterior inferior cerebellar artery, which is a stable finding. The left V4 segment is within normal limits. Dural venous sinuses: Unremarkable given phase of enhancement. Other: Arterial phase appearance of the brain parenchyma is unremarkable. Neck CT Angiogram: Internal carotid arteries: Unremarkable. No significant stenosis. No dissection or occlusion. Common carotid arteries: Unremarkable. No significant stenosis. No dissection or occlusion. External carotid arteries: Unremarkable. No occlusion. Vertebral arteries: The left vertebral artery is dominant to the right. No significant stenosis. No dissection or occlusion. Aortic Arch and Mediastinum: Partially visualized aortic arch unremarkable without evidence of aneurysm. Origins of the great vessels unremarkable. Other: Arterial phase soft tissues of the neck and chest are unremarkable. Moderate cervical spine degenerative change can be seen. IMPRESSION: No significant intracranial arterial abnormality is seen. No significant abnormality is seen within the arteries of the neck. If there is strong clinical suspicion for an acute stroke, please consider a brain MRI for further evaluation, as it is more sensitive (assuming that there is no contraindication to MRI). Additional findings: Xagrrb-gp-Xqlgtn developmental anomalies. Moderate cervical spine degenerative change Any quantitative measurements of stenosis were performed using NASCET criteria. Dictated by: Carter Davila M.D. on 07/23/2024 at 14:30 Approved by: Carter Davila M.D. on 07/23/2024 at 14:35 [facility] Narrative Medical decision making narrative: [place] for sudden onset 1 hour ago 1:20 p.m. slurred speech left facial droop and syncope. Patient has history of TIAs in the past. Is on cholesterol medication and Plavix. Denies any chest pain back pain or headache. Patient behaving at baseline at this time. Fast exam is negative. Patient in no distress at this time. Code stroke activated After history and exam, CT head CT angiogram head and neck EKG CBC CMP PT INR PTT troponin, admit [facility] Medical records reviewed: No recent visit for this complaint Differential considered: Includes but not limited to TIA stroke seizure vasovagal syncope Alvarez's palsy Lab Test results independently reviewed as above. Pertinent findings: Independently reviewed EKG normal sinus rhythm rate 68 normal EKG Imaging studies independently reviewed: CT head CT angiogram head and neck Consultations: 2:45 p.m.. Radiologist read the CT without contrast no acute finding 2:51 p.m.. I spoke with [facility] tele stroke, Dr. Givens, recommends admission observation MRI echocardiogram aspirin and Plavix for 21 days 30 day Holter monitor increase atorvastatin to 80 mg daily 4:[address] Ndiaye, hospitalist, he will admit patient Re-evaluations: Reviewed results with patient and . They do agree for admission. Discussion: Appropriate for admission for balance of workup for likely TIA. Symptoms have resolved prior to arrival. No neurology consult indicated at this time. No TNK or tPA indicated. Patient at baseline Diagnosis: TIA Discharge Plan Departure Patient Disposition: Admitted as Observation Clinical Impression: TIA (transient ischemic attack) Qualifiers: Transient cerebral ischemia type: unspecified Qualified Code(s): G45.9 - Transient cerebral ischemic attack, unspecified Admit Date/Time: 07/23/24 16:10 Admit Provider: Familia Ndiaye
--- NOTE | 2024-07-23 14:28 | EKG_ITS ---
[address] [address] Test Date: 2024-07-23 Pat Name: Dane Godinez Department: Room: Gender: Male Underbaster: JOSUÉ : 1940 Requested By: Order Number: [id number] Reading MD: Familia Ndiaye Measurements Intervals [place] Rate: 68 P: 46 MD: 186 QRS: 12 QRSD: 110 T: 37 QT: 370 QTc: 393 Interpretive Statements Normal sinus rhythm Electronically Signed On 07-23-2024 19:02:08 PDT by Familia Ndiaye
[2024-07-23 14:52] LABS: Add Manual Diff / Slide Review YES; Hematocrit 42.8 % (41-53); Hemoglobin 14.3 g/dL (13.5-17.5); Mean Corpuscular HGB Conc 33.5 % (30-36); Mean Corpuscular Hemoglobin 28.2 PG (26-34); Mean Corpuscular Volume 84.2 fL (80-100); Platelet Count 206 X10^3/uL (150-400); Red Blood Cell Count 5.08 X10^6/uL (4.5-5.9); Red Cell Distribution Width 19.3 % (11.6-14.8); White Blood Cell Count 8.2 X10^3/uL (4.5-11.0)
[2024-07-23 15:06] LABS: INR 1.1 (0.9-1.3); Prothrombin Time 11.9 SECONDS (9.4-12.5)
[2024-07-23 15:09] LABS: PTT Partial Thromboplastin Tim 36 SECONDS (25.1-36.5)
[2024-07-23 15:13] LABS: Neutrophils Absolute Manual 6560 /uL (3000-5900); Total Cells Counted 100
[2024-07-23 15:14] LABS: Anisocytosis 2+
[2024-07-23 15:15] LABS: Microcytosis 1+
[2024-07-23 15:16] LABS: Alanine Aminotransferase 21 IU/L (<50); Albumin 4.7 g/dL (3.5-5.0); Alkaline Phosphatase 84 U/L (38-126); Aspartate Aminotransferase 28 IU/L (17-59); BUN Creatinine Ratio 20.8 (6-22); Bilirubin Total 1.2 mg/dL (0.2-1.3); Blood Urea Nitrogen 15 mg/dL (9-20); Calcium 9.2 mg/dL (8.4-10.2); Carbon Dioxide 25 mmol/L (22-32); Chloride 103 mmol/L (98-107); Creatine Kinase 47 U/L (55-170); Estimated Glomerular Filt Rate > 60 mL/min (>60); Globulin 2.3 g/dL (1.7-4.1); Glucose 163 mg/dL (70-99); HEMOLYSIS < 15 (0-50); Potassium 3.4 mmol/L (3.4-5.1); Sodium 138 mmol/L (137-145)
[2024-07-23 15:22] LABS: UR Morphine/Opiate cutoff 300 Negative (Negative); Ur Creatinine Normal (Normal); Ur Specific Gravity Normal (Normal); Urine Amphetamines Negative (Negative); Urine Barbiturates Negative (Negative); Urine Benzodiazepines Negative (Negative); Urine Cocaine Negative (Negative); Urine MDMA Negative (Negative); Urine Methadone Negative (Negative); Urine Methamphetamines Negative (Negative); Urine Oxycodone Negative (Negative); Urine Phencyclidine Negative (Negative); Urine Tetrahydrocannabinol Negative (Negative); Urine Tricyclic Antidepressant Negative (Negative); Urine pH Normal (Normal)
[2024-07-23 15:28] LABS: Troponin I < 0.012 ng/mL (0.01-0.034)
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
--- NOTE | 2024-07-23 18:19 | DI.MRI.S_ITS ---
PROCEDURE: MR HEAD/BRAIN WO CON INDICATIONS: TIA TECHNIQUE: Noncontrast axial T1 spin echo, axial T2 fast spin echo, sagittal and axial FLAIR, coronal T2 fast spin echo, axial gradient echo, axial diffusion and ADC through the brain. COMPARISON: None. FINDINGS: CSF Spaces: Basal cisterns are patent. No extra-axial fluid collections. Ventricles are normal in size and shape. Brain: No intracranial masses or hemorrhage. Cutler/white matter interface is normal. Brainstem appears normal. Diffusion-weighted sequence is unremarkable without evidence of acute infarct. Normal intravascular flow voids are present. Mild age-appropriate atrophy and white matter chronic ischemic change Skull and face: Calvarium has normal marrow signal. Orbits appear normal. Bilateral intraocular lens replacements noted. Sinuses: Sinuses and mastoids are clear. IMPRESSION: Mild age-appropriate atrophy and chronic ischemic change without acute infarct, hemorrhage or mass lesion Approved by: Sergio Olguin M.D. on 07/24/2024 at 10:47
--- NOTE | 2024-07-23 18:19 | DI.ECHO.S_ITS ---
[facility] : : [address] : : [place] : : [id number] : : Phone: [phone] Echocardiogram Report + + :Name: MICHAEL GALEANO Study Date: 07/24/2024 Height: 70 in : :[facility] ReadingLocation: Weight: 165 lb : : Gender: Male BSA: 1.9 m2 : :: 1940 Age: 84 yrs BP: 142/69 mmHg: :Reason For Study: POSSIBLE STROKE : :Ordering Physician: BRINDA, : :DIMITRY Macias Performed By: Gaston Wagner : :Referring: DIMITRY PARRY : + + Interpretation Summary The ejection fraction is estimated to be 55-60%. Diastolic parameters suggest probable normal left ventricular diastolic function and normal filling pressures. The right ventricle is normal in size and function. The IVC is of normal diameter and collapses greater than 50% with a sniff. This suggests a low right atrial pressure of 3 mm Hg. No significant valvular abnormality. Procedure: A two-dimensional transthoracic echocardiogram with color flow and Doppler was performed. Comparison is made with the echocardiogram of 01/03/2017. The study quality was technically adequate. The patient was in normal sinus rhythm during the exam. Left Ventricle: The left ventricle is normal in size. There is normal left ventricular wall thickness. There is no ventricular septal defect visualized. The ejection fraction is estimated to be 55-60%. There are no focal wall motion abnormalities. Diastolic parameters suggest probable normal left ventricular diastolic function and normal filling pressures. Right Ventricle: The right ventricle is normal in size and function. Atria: The left atrium is mildly dilated. The right atrium is normal in size. There is no Doppler evidence for an interatrial shunt. Mitral Valve: The mitral valve leaflets appear normal. There is no evidence of stenosis, fluttering, or prolapse. There is no mitral regurgitation noted. Aortic Valve: The aortic valve is trileaflet. The aortic valve opens well. There is no aortic valve stenosis. No aortic regurgitation is present. Tricuspid Valve: The tricuspid valve leaflets are thin and pliable. There is a trace or physiologic amount of tricuspid regurgitation. Pulmonic Valve: The pulmonic valve is not well visualized. There is trace pulmonic regurgitation. Great Vessels: The aortic root is normal size. The dimensions of the ascending aorta are normal. The pulmonary artery is normal size. The IVC is of normal diameter and collapses greater than 50% with a sniff. This suggests a low right atrial pressure of 3 mm Hg. Pericardium/ Pleura There is no pericardial effusion. There is no pleural effusion. MMode/2D Measurements & Calculations LVIDd: 4.0 cm LVOT diam: 1.9 cm LVIDs: 2.6 cm Ao root diam: 3.5 cm FS: 35.8 % asc Aorta Diam: 3.3 cm EPSS: 0.61 cm IVSd: 0.87 cm LVPWd: 0.86 cm LV bustillo. diameter/BSA (cm/m^2): 2.1 LV sys. diameter/BSA (cm/m^2): 1.3 LA A2 area: 24.1 cm2 RA long axis: 4.8 cm LA A4 area: 20.0 cm2 RA area: 15.6 cm2 LA length (vol): 6.1 cm RA vol: 43.4 ml LA vol: 67.3 ml RA : 22.6 ml/m2 LA vol index: 35.0 ml/m2 IVC diam: 1.8 cm RVD1 (basal): 3.9 cm RVD2 (mid): 2.8 cm TAPSE: 2.7 cm Doppler Measurements & Calculations Ao V2 max: 143.6 cm/sec LVOT Max Tae: 114.9 cm/sec Ao V2 mean: 95.3 cm/sec LV V1 max P.3 mmHg Ao max P.2 mmHg LV V1 VTI: 26.2 cm Ao mean P.1 mmHg CHANTALE(I,D): 2.4 cm2 Ao V2 VTI: 32.3 cm CHANTALE(V,D): 2.3 cm2 sev ratio: 0.81 CHANTALE indexed to BSA (cm^2/m^2): 1.2 MV E max tae: 73.7 cm/sec PA V2 max: 105.6 cm/sec MV A max tae: 85.5 cm/sec PA V2 mean: 74.2 cm/sec MV E/A: 0.86 PA mean P.5 mmHg Med Peak E' Tae: 8.3 cm/sec PA pr(Accel): 48.2 mmHg E/E' med: 8.9 Lat Peak E' Tae: 9.4 cm/sec E/E' lat: 7.9 E/e' average: 8.4 MV dec time: 0.19 sec SV(LVOT): 76.4 ml Reading Physician:10:34 AM
[2024-07-23] MEDS: ASPIRIN EC 81 MG TABLET PO (19:00)
--- NOTE | 2024-07-23 19:08 | PC.NURSE ---
Patient arrived from ED at 1715. Per patient and pt is back to baseline. Noted very slight L corner of the mouth, asymmetry, per patient he denies any altered sensation or weakness to face, arms or legs. He ambulates with steady gait, VSS, afebrile on RA. NSR on telemetry. He is able to eat dinner. Hospitalist at bedside evaluating patient. Plan to monitor patient overnight and have Echo and MRI completed 07/24/24 prior to discharge. Continuous monitoring.
--- NOTE | 2024-07-23 19:13 | PC.NURSE ---
Pt states his PCP at has a copy of Adv directives
[2024-07-23] MEDS: HEPARIN 5,000 UNIT/ML VIAL 5000 UNIT SUBCUT (21:30)
[2024-07-23] MEDS: ATORVASTATIN 20 MG TABLET 80 MG PO (21:30)
[2024-07-24 03:00] VITALS: BP 142/69; PULSE 62; RESP 18; TEMP 36.6; O2SAT 97
[2024-07-24 08:00] VITALS: BP 153/69; PULSE 69; RESP 20; TEMP 36.4; O2SAT 99
[2024-07-24] MEDS: HEPARIN 5,000 UNIT/ML VIAL 5000 UNIT SUBCUT (08:47)
[2024-07-24] MEDS: ASPIRIN EC 81 MG TABLET PO (08:49)
[2024-07-24] MEDS: CLOPIDOGREL 75 MG TABLET PO (08:49)
[2024-07-24 12:00] VITALS: PULSE 69; RESP 16
--- NOTE | 2024-07-24 12:38 | CM.DANOTE ---
DCP Assessment Note: Pt is a 84yo male, resident of [place], is admitted for TIA vs. CVA vs. Syncope observation/clearance. Pt lives in a house with his , Aby. Pt's Primary Care Provider is Dr. Angelo Aviles and insurance is [facility]. Reviewed chart and discussed with multidisciplinary team pt's medical status and initial discharge needs. Per hospitalist, pending echocardiography and MRI. Per RN, pt independent in room, already dressed to dc home if cleared. DCP met w/patient at bedside; introduced self and role. Present in the room is pt's , Aby. Patient was found in chair, alert and oriented, cooperative with assessment. Pt confirmed living situation and good support in spouse. Pt expressed preference in discharge home when cleared, report they have already completed MRI and awaiting results. Pt has no prior history of SNF Rehab or home health, declines any referrals needed at this time. Pt explains they have a previously scheduled appt with PCP Dr. French on Saturday, 07/27 at 4:00pm and can follow up results then. DCP to notify TCM group of pt status due to PCP Manolo, DCP also notified hospitalist of pt appointment date for discharge documentation. Plan: Anticipating dc home with spouse on 07/24 or when medically cleared. CM team will follow closely for coordination of discharge plans. Akilah Dickerson [facility] Discharge Planning/Care Management Document 07/24/24 12:38 MW (Rec: 07/24/24 12:38 MW [id number]) Discharge Planning Assessment Assigned Discharge JESSE Isbell Application Release Manager DPOA/Assigned Aby, Designee Name Contact Information [phone] Advance Directives? Yes Advance Directives Yes on File History Provided By Patient,Family Member,Medical Record Has Patient been No admitted in last 30 days? Prior Living House Arrangements Comment [place] Household Members spouse Type of Drives own vehicle transporation used prior to admit Independent with ADL Yes 's Is patient alert and Yes oriented? Caregiver for No Another Barriers to No Discharge Discharge Plan Home Referrals Initiated None needed Whiteboard Updated Yes in Patient Room with name and ext. # of Property Staff Accountant Review Status In Process Please Provide Date 07/24/24 Initial DC Assessment Was Performed Next Review Type Continued Stay Review
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
--- NOTE | 2024-07-24 14:12 | PT.IIE ---
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 Activities of Daily Indep ADLs Living and IADL's Social History Household Members spouse Living Arrangements House Number of Floors ( One Floor Floors) Number of Stairs To No stairs to enter; stairs are present down to the Enter/Railing? basement (with railing) Additional Social Lives with History Comment M2 PT-IP Current Condition Start: 07/24/24 13:59 Freq: NEEDED Status: Active Protocol: Document 07/24/24 14:01 KJ (Rec: 07/24/24 14:11 KJ [id number]) Physical Therapy Current Condition Current Condition Evaluation Date 07/24/24 Treatment Diagnosis Impaired balance Onset Date 07/23/24 M3 PT-IP Subjective Start: 07/24/24 13:59 Freq: NEEDED Status: Active Protocol: Document 07/24/24 14:01 KJ (Rec: 07/24/24 14:11 KJ [id number]) Subjective Physical Therapy Visit Type Type Initial Evaluation Visit Start Time 13:26 Visit Stop Time 13:44 Physical Therapy Visit Comments Patient Comments During assessment of balance and teaching of exercises pt admits feeling deficit in balance Patient Goals To go home and resume normal life. To not fall and sustain an injury. M4 PT-IP Mobility and Gait Start: 07/24/24 13:59 Freq: NEEDED Status: Active Protocol: Document 07/24/24 14:01 KJ (Rec: 07/24/24 14:11 KJ [id number]) PT-Transfer Assessment Sit to and From Stand Sit to and from Independent Stand Comments Mobility Comments Indep mobility in room without AD. No lob. Gait Assessment Gait Gait Assistance Independent Required: Assistive Devices Assistive Device None Gait Deviations General Gait Pattern Narrow Based Gait PT-Balance Assessment Sitting Balance and Reactions Static Sitting Normal Balance Ability Dynamic Sitting Normal Balance Ability Standing Balance and Reactions Static Standing Good Balance Ability Dynamic Standing Good Balance Ability Balance Tests Single Limb Standing deficit in single leg standing on L M5 PT-IP Objective Assessments Start: 07/24/24 13:59 Freq: NEEDED Status: Active Protocol: Document 07/24/24 14:01 KJ (Rec: 07/24/24 14:11 KJ [id number]) Orientation Orientation/Cognition Level of Alertness Alert Orientation Name,Age,Birthday Language Function No Deficits Noted Ability Safety Awareness Understands Safety Issues Memory Description No Deficits Noted Gross Range of Motion Upper Extremity ROM Assessment Within Functional Limits Lower Extremity ROM Assessment Within Functional Limits Strength Upper Extremity Strength Assessment Within Functional Limits Lower Extremity Strength Assessment Within Functional Limits Coordination Assessment Gross Coordination Gross Coordination WNL M6 PT-IP Treatment Start: 07/24/24 13:59 Freq: NEEDED Status: Active Protocol: Document 07/24/24 14:01 KJ (Rec: 07/24/24 14:11 KJ [id number]) Physical Therapy Treatment Exercises Knee ROM Measurement Balance exercises to perform at home - i Other Treatments Other Treatment Balance ex: single leg standing with eyes open and Performed closed, heel toe walking, braiding. Single leg standing while performing an activity such as bouncing a ball or playing catch. Standing or walking on uneven surfaces as a balance exercise. Explained the balance system of the body, discussed why eyes closed or being in the dark decreases your balance, discussed foot wear such as cushioned shoes vs . supportive shoes, recommended pt participate in community based exercise classes/screening such as [place]. M7 PT-IP Assessment and Plan Start: 07/24/24 13:59 Freq: NEEDED Status: Active Protocol: Document 07/24/24 14:01 KJ (Rec: 07/24/24 14:11 KJ [id number]) PT Summary Assessment and Plan Potential Rehabilitation Excellent Potential Status of Condition Stable at Evaluation Summary Impairments Balance Progress Towards Progressing Toward Goals Goals Goals Other Goals Improve balance: able to stand on left leg with eyes open for at least 5 seconds on either leg Frequency of Treatment Frequency Of Discharge Treatment Treatment Plan Other Recommend pt participate in community based programs Recommendations and for balance. If he continues to have a balance deficit Next Treatment Focus he should seek physical therapy.
--- NOTE | 2024-07-24 14:51 | PC.NURSE ---
Patient is A&OX4, VSS, afebrile on RA. He has an echo completed at bedside this a.m. as well as an MRI at approximately 1030 a.m. He denies feeling any new neurological changes and NIH score is 0. He denies any altered sensation to face, extremities, hands or feet and ambulates independently with a steady gait. On telemetry heart rhythm is NSR, and he is evaluated by PT today. Results of exams are reviewed with hospitalist at bedside and he is cleared for discharge home today.He and verbalize understanding of new meds and follow up next week with PCP. Per patient request he prefers to ambulate to front entrance of the hospital with all of his belongings to private vehicle with his at approximately 1415 this afternoon.
== END 2024-07-24 14:15 | disposition home or self-care (01) ==
LOC: ED 14:35 → AC 16:11
PROVIDERS: Admitting Provider Hospitalist; Emergency Provider Emergency Medicine; Family Provider Physician Assistant; PCP Family Medicine; Referring Provider Emergency Medicine; Visit Provider Hospitalist
DX: R47.81 Slurred speech (principal); R55 Syncope and collapse; R29.810 Facial weakness; I10 Essential (primary) hypertension; R29.700 NIHSS score 0; Z79.01 Long term (current) use of anticoagulants; Z86.73 Personal history of transient ischemic attack (TIA), and cerebral infarction without residual deficits
CPT/HCPCS: 36415; 70450; 70496; 70498; 70551; 71045; 80053; 80305; 81003; 82550; 82962; 84484; 85007; 85025; 85610; 85730; 93005; 93306; 96372; 96374; 96375; 97161; 99284; G0378; J1644; Q9967

== ENCOUNTER → 2024-09-17 13:08 | Outpatient (CLI) | payer MEDICARE, SELFPAY ==
[2024-07-23 18:43] VITALS: BMI 23.6
--- NOTE | 2024-09-17 18:27 | DI.NM.S_ITS ---
DATE OF SERVICE: 09/17/2024 EXERCISE STRESS TEST INDICATIONS: Syncope. CARDIAC STRESS: The patient underwent exercise stress test under the supervision of an attending staff. The patient walked on Rambo protocol for almost 6 minutes, achieved 7 METS of workload, NAI -27%, maximum heart rate 155, which was 113% of target heart rate. Resting blood pressure 140/70 and peak blood pressure 220/96 suggestive of hypertensive blood pressure response. Baseline rhythm sinus. During stress, no convincing ischemic changes seen. Single pair PVC without any complex arrhythmias. No chest pain. Had some shortness of breath. Normal recovery. CONCLUSION: Exercise stress test is negative for inducible ischemia. Good exercise tolerance. Hypertensive blood pressure response. No ischemic EKG changes or anginal symptoms. No complex arrhythmias. Overall, low-risk exercise stress test. Dane Godinez - RUDDY/liz/ARASELI doc#: [id number]/job#: [id number] dd: 09/17/2024 17:16:00 dt: 09/17/2024 18:10:00 DICTATING /COPIES TO: Yuri Bailey MD COPIES MNE: [place];
== END ==
LOC: NUCM 13:08
PROVIDERS: PCP Family Medicine; Referring Provider Internal Medicine; Visit Provider Internal Medicine
DX: R55 Syncope and collapse (principal); R03.0 Elevated blood-pressure reading, without diagnosis of hypertension
CPT/HCPCS: 93017